=== PATIENT | female | born 1955 | race Caucasian/White ===

== ENCOUNTER 2016-11-11 12:43 | Emergency (ER) | payer MEDICAID, MEDICARE ==
[~2016-11-11] VITALS: Ht 137.2 cm; Wt 68.9 kg
[~2016-11-11 12:43] MED LIST: ACET325T51 PO; ALBU18HF2 ORAL INH; ALBU2.5V7 AEROSOL; CALC-1000 PO CHEW; CARB15DR12 EACH EAR; CHOL100018 PO; CLOT15CR5 TOP; DESO15CR30 TOP; DIPH25CA6 PO; FLUT16SP EA NOSTRIL; GABA-338 PO; GLUC500C2 PO; GUAI5SYR PO; HYDR30CR53 TOP; IBUP-1724 PO; KETO120S7 TOP; LACT1CAP14 PO; LEVO112T7 PO; LOPE2CAP PO; LORA0.5T2 PO; LORA10TA PO; MICO56OI2 TOP; MONT10TA15 PO; MULT-11 PO; MUPI22OI2 TOP; NYST15CR TOP; NYST60PO11 TOP; POLY17PO6 PO; PSEU30TA31 PO; RISP0.5T20 PO; TEMA15CA PO; TRIA15CR4 TOP; VIT236LO TOP; [UNRECOGNIZED DRUG - CODE] PO; [UNRECOGNIZED DRUG - CODE] TOP
[2016-11-11 12:48] VITALS: BP 137/75; TEMP 98.6; Ht 137.2 cm; Wt 68.9 kg
--- OUTSIDE RECORDS SUMMARY | 2016-11-11 12:49 | XMS REPORT | Continuity of Care Document ---
Author Author [facility] Organization [facility] Address Unknown Phone Unavailable Care Team Providers Care Diesel Technician Mechanic Name Role Phone NORTH ZHU MD Primary Care Physician [phone] Insurance Providers Guarantor Xin Velez Address [address] [place] [address] EVA Email DENIED/NO TO PT PORTAL Payer [facility] Plan Policy Number [id number] Subscriber's Name Xin Velez Relationship 18 Self Effective Date 16 Expiration Date 15 Payer Medicare Policy Number [id number] Subscriber's Name Xin Velez Relationship 18 Self Effective Date 74 Advance Directives Directive Response Recorded Date/Time Advanced Directives Type None 08/15/16 10:20pm Chief Complaint and Reason for Visit Chief Complaint Fever Reason for Visit [id number] Volume depletion Problems Active Problems Medical Problem Onset Date Status Acute urinary retention Unknown Resolved Diarrhea Unknown Resolved Down's syndrome Unknown Chronic Dysphagia Unknown Chronic Elevated lipase Unknown Resolved Epistaxis Unknown Acute Epistaxis Unknown Acute Fall Unknown Acute Fall Unknown Acute Hyperosmolality and hypernatremia Unknown Acute Hypotension Unknown Chronic Hypothyroidism Unknown Chronic Hypoxia Unknown Acute Leukocytosis Unknown Resolved MR (mental retardation) Unknown Chronic Minor head injury without loss of consciousness Unknown Acute Obesity (BMI 30-39.9) Unknown Chronic Pneumonia Unknown Acute Pneumonia Unknown Acute Rhinovirus Unknown Acute Scalp contusion Unknown Acute Scalp contusion Unknown Acute Sepsis Unknown Resolved Septic shock Unknown Resolved Surgical Problem Onset Date Status History of cataract extraction Unknown Resolved Past Problems Medical Problem Onset Date Constipation Unknown UTI (urinary tract infection) Unknown Urinary tract infection Unknown Volume depletion Unknown Medications Current Home Medications Medication Dose Units Route Directions Days Qty Instructions Start Date Acetaminophen 325 Mg Tablet 650 Mg Oral Every 4 Hours as needed for Fever Do not exceed 3,200 mg of acetaminophen in a 24 hours period. 03/25/16 Albuterol Sulfate 2.5 Mg/3 Ml Vial.neb 2.5 Mg Aerosol Tx. Every 2 Hours as needed for Wheezing 03/25/16 Albuterol Sulfate (Ventolin Hfa 90 Mcg/Actuation) 18 Gm Hfa.aer.ad 2 Puff Oral Inhalation Four Times Daily 03/25/16 Calcium Carbonate/Mag Hydrox (Antacid Chewable Tablet) 1 Each Tab.chew 2 Tab Po Chew Every 4 Hours as needed for Heartburn 03/25/16 Carbamide Peroxide (Ear Drops) 15 Ml Drops 5 Drop Each Ear Twice A Day as needed for Prn Orders 03/25/16 Chlorhexidine Gluconate (Betasept) 3,780 Ml Liquid 1 Applic Topically Daily 03/25/16 Cholecalciferol (Vitamin D3) 1,000 Unit Tablet 1,500 Unit Oral Daily 03/25/16 Clotrimazole/Betamethasone Dip (Clotrimazole-Betamethasone Crm) 15 Gm Cream..g. 1 Applic Topically Daily apply to feet 03/25/16 Desonide 15 Gm Cream..g. 1 Applic Topically As Needed 03/25/16 Diphenhydramine Hcl 25 Mg Capsule 25 Mg Oral Every 4 Hours as needed for Allery Symptoms 03/25/16 Fluticasone Propionate (Fluticasone Prop 50 Mcg/Actuation Nasal [place]) 120 [place]/16 G [place] 2 [place] Each Nostril Daily 01/11/15 Gabapentin 300 Mg Capsule 300 Mg Oral Bedtime 03/25/16 Glucosamine Sulfate 500 Mg Capsule 1,500 Mg Oral Twice A Day 05/31 Glucosamine Sulfate 500 Mg Capsule 500 Mg Oral Give With Supper 03/25/16 Guaifenesin/Codeine Phosphate (Guaifenesin Ac Cough Syrup) 473 Ml Liquid 5-10 Ml Oral Every 6 Hours as needed for Cough 03/25/16 Guaifenesin/D-Methorphan Hb (Guaifenesin Dm Syrup) 5 Ml Syrup 10 Ml Oral Every 4 Hours 03/25/16 Hydrocortisone 30 Gm Cream..g. 1 Applic Topically Twice A Day as needed for Prn Orders 03/25/16 Ibuprofen 200 Mg Tablet 400 Mg Oral Every 4 Hours as needed for Pain 03/25/16 Ketoconazole (Nizoral) 120 Ml Shampoo 1 Applic Topically Daily Lactobacillus Acidophilus (Acidophilus) 1 Each Capsule 1 Cap Oral Daily 07/06/15 Levothyroxine Sodium 112 Mcg Tablet 112 Mcg Oral Before Breakfast Once daily before breakfast. 08/16/16 Loperamide Hcl (Loperamide) 2 Mg Capsule 2 Mg Oral Four Times Daily as needed for Diarrhea 03/25/16 Loratadine (Alavert) 10 Mg Tablet 10 Mg Oral Daily 11/24/10 Lorazepam 0.5 Mg Tablet 0.5-1 Mg Oral Daily as needed for Anxiety give 30min-1hr prior to procedure 03/25/16 Miconazole Nitrate (Aloe Felt) 56 Gm Oint...g. 1 Applic Topically As Needed 03/25/16 Montelukast Sodium (Singulair) 10 Mg Tablet 10 Mg Oral Daily 07/06 Multivitamin (Tab-A-Tavo) 1 Each Tablet 1 Tab Oral Daily 01/11/15 Mupirocin 22 Gm Oint...g. 1 Applic Topically Twice A Day apply to tata area 03/25/16 Nystatin 15 Applic/15 G Cr 1 Applic Topically Three Times A Day 03/25/16 Nystatin 60 Gm Powder 1 Applic Topically Twice A Day 03/25/16 Polyethylene Glycol 3350 (Miralax) 17 Gm Powd.pack 1 Packet Oral Daily 30 Packet 03/25/16 Pseudoephedrine Hcl (Sudogest) 30 Mg Tablet 30 Mg Oral Twice A Day as needed for Congestion 03/25/16 Risperidone 0.5 Mg Tablet 0.5 Mg Oral Bedtime 07/06/15 Temazepam 15 Mg Capsule 15 Mg Oral Bedtime 07/06/15 Triamcinolone (Triamcinolone Acetonide) 15 Applic/15 G Cr 1 Applic Topically Twice A Day apply to dry areas on ear and scalp 03/25/16 Vit E Acetate/Gly/Dimeth/Water (Cetaphil Moisturizing Lot) 50 Applic/236 Ml Lotion 1 Applic Topically Three Times A Day 03/25/16 Past Home Medications Medication Directions Ordered Status Ciprofloxacin Hcl (Cipro) 250 Mg Tablet, 250 Mg Oral Every 12 Hours 03/25/16 Discontinued Ciprofloxacin Hcl (Cipro) 500 Mg Tablet, 500 Mg Oral Every 12 Hours 08/16/16 Discontinued Ciprofloxacin Hcl (Cipro) 500 Mg Tablet, 500 Mg Oral Twice A Day 10/27/08 Discontinued Levothyroxine Sodium 50 Mcg Tablet, 50 Mcg Oral Before Breakfast 07/06/15 Discontinued Levothyroxine Sodium 75 Mcg Tablet, 75 Mcg Oral Before Breakfast 01/11/15 Discontinued Nystop Powder , 30 Gm Topical Three Times A Day 10/25/08 Discontinued Parab/Cet Alc/Stryl Alc/Pg/Sls (Cetaphil Cleansing Lotion) 120 Ml Cleanser, 120 Ml Topical Three Times A Day 10/27/08 Discontinued Saline [place] , As Needed 10/25/08 Discontinued Trazodone Hcl 50 Mg Tablet, 1 Tab Oral Daily 03/07/10 Discontinued Triamcinolone Acetonide (Kenalog 0.1%) 80 Gm Cr, 80 Gm Topical Twice A Day Discontinued Social History Social History Problem Response Recorded Date/Time Onset Date Status Hx Substance Use No 08/16/2016 12:20am Not Applicable Not Applicable Hx Alcohol Use No 08/16/2016 12:20am Not Applicable Not Applicable Has the pt used tobacco in the last 12 months No 07/09/2015 12:57pm Not Applicable Not Applicable Tobacco Usage none 07/06/2015 12:47pm Not Applicable Not Applicable Query Response Start Date Stop Date Smoking Status Unknown if ever smoked Hospital Discharge Instructions No hospital discharge instructions. Plan of Care Discharge Date 08/16/16 1:40am Disposition 01 DISCHARGED HOME, SELF-CARE Condition at Discharge Stable Instructions/Education Provided DI for Urinary Tract Infection (UTI) Prescriptions See Medication Section Referrals NORTH ZHU MD Address: [address] [place] [id number] Additional Instructions/Education Give cipro 500mg twice daily for 7 days. Repeat urine after finishing antibiotic. Treat fever with ibuprofen or Tylenol. Keep well hydrated, offer fluids often. Follow treatment plan. Follow with PCP if not improving early next week. Care Plan and Goals Physician Care Plan Problem: UTI Goal: Follow up with primary care provider Instructions: Take medications and follow care plan as discussed/written Functional Status No functional status results. Allergies, Adverse Reactions, Alerts Allergen Type Severity Reaction Status Last Updated Amoxicillin Allergy Unknown Active 07/06/15 Tomato Allergy Unknown Active 07/06/15 metal jewlery Allergy Mild ALLERGIC DERMATITIS Active 01/11/15 Immunizations Query Response on File Recorded Date/Time Hx Influenza Vaccination Y 05/201507/09/15 12:57pm Hx Pneumococcal Vaccination No 07/09/15 12:57pm Hx Tetanus, Diptheria, Pertussis No 01/11/15 7:45am Hx Influenza Vaccination Y 05/201507/09/15 12:57pm Hx Tetanus Diptheria Y 06/24/04 01/11/15 7:45am Hx Tetanus, Diptheria, Pertussis No 01/11/15 7:45am Influenza Vaccine Hx MAY 2015 08/16/16 12:20am Vital Signs Acute Vital Signs Vital Response Date/Time Temperature (Fahrenheit) 102.3 deg F (96.8 - 99.1) 08/15/2016 10:20pm Temperature (Calculated Celsius) 39.32840 degrees C (36.0 - 37.3) 08/15/2016 10:20pm Pulse Rate (adult) 70 bpm (60 - 100) 08/16/2016 1:40am Respiratory Rate 16 breaths/min (10 - 20) 08/16/2016 1:40am O2 Sat by Pulse Oximetry 90 % (90 - 100) 08/16/2016 1:40am Blood Pressure 86/48 mm Hg 08/16/2016 1:40am Height (Feet) 4 feet 08/15/2016 10:20pm Height (Inches) 6.00 inches 08/15/2016 10:20pm Weight (Kilograms) 69.400 kg 08/15/2016 10:20pm Body Mass Index (BMI) 36.0 08/15/2016 10:20pm Results Laboratory Results Test Name Result Units Flags Reference Collection Date/Time Result Date/ Time Comments White Blood Count 8.1 T/MM3 4.5-11.0 08/15/2016 11:00pm 08/15/2016 11: 06pm Red Blood Count 4.00 M/MM3 4.00-5.20 08/15/2016 11:00pm 08/15/2016 11: 06pm Hemoglobin 12.8 GM/DL 12-16 08/15/2016 11:00pm 08/15/2016 11:06pm Hematocrit 38.6 % 36-46 08/15/2016 11:00pm 08/15/2016 11:06pm Mean Corpuscular Volume 96.5 UM3 80-100 08/15/2016 11:00pm 08/15/2016 11:06pm Mean Corpuscular Hemoglobin 32.0 UUG 26-34 08/15/2016 11:00pm 2015 11:06pm Mean Corpuscular Hemoglobin Concent 33.2 GM/DL 31-37 08/15/2016 11:00pm 08/15/2016 11:06pm RDW Standard Deviation 47.2 FL 36.9-50.2 08/15/2016 11:00pm 08/15/2016 11:06pm Platelet Count 189 T/MM3 130-400 08/15/2016 11:00pm 08/15/2016 11:06pm Mean Platelet Volume 10.5 UM3 9.4-12.4 08/15/2016 11:00pm 08/15/2016 11 :06pm Neutrophils (%) (Auto) 62.7 % 33-66 08/15/2016 11:00pm 08/15/2016 11: 06pm Lymphocytes (%) (Auto) 20.4 % L 23-45 08/15/2016 11:00pm 08/15/2016 11: 06pm Monocytes (%) (Auto) 15.7 % H 0-9.0 08/15/2016 11:00pm 08/15/2016 11: 06pm Eosinophils (%) (Auto) 0.2 % 0-4 08/15/2016 11:00pm 08/15/2016 11:06pm Basophils (%) (Auto) 0.5 % 0-2 08/15/2016 11:00pm 08/15/2016 11:06pm Immature Granulocyte % (Auto) 0.5 % 0.0-0.5 08/15/2016 11:00pm 2015 11:06pm Absolute Neutrophils (auto) 5.1 T/MM3 1.8-7.7 08/15/2016 11:00pm 2015 11:06pm Absolute Lymphocytes (auto) 1.7 T/MM3 1-4.8 08/15/2016 11:00pm 2015 11:06pm Absolute Monocytes (auto) 1.3 T/MM3 H 0-0.8 08/15/2016 11:00pm 2015 11:06pm Absolute Eosinophils (auto) 0.0 T/MM3 0-0.5 08/15/2016 11:00pm 2015 11:06pm Absolute Basophils (auto) 0.0 T/MM3 0-0.2 08/15/2016 11:00pm 2015 11:06pm Absolute Immature Granulocyte (auto 0.04 T/MM3 H 0.00-0.03 08/15/2016 11: 00pm 08/15/2016 11:06pm Icterus Index < 2 0-7 08/15/2016 11:00pm 08/15/2016 11:15pm Chemistry Specimen Hemolysis < 15 0-25 08/15/2016 11:00pm 08/15/2016 11:15pm 0-25: Specimen Exhibited No Hemolysis. Turbidity < 20 0-20 08/15/2016 11:00pm 08/15/2016 11:15pm Sodium Level 143 MEQ/L 134-144 08/15/2016 11:00pm 08/15/2016 11:15pm Potassium Level 4.2 MEQ/L 3.6-5 08/15/2016 11:00pm 08/15/2016 11:15pm Chloride Level 108 MEQ/L H 98-107 08/15/2016 11:00pm 08/15/2016 11:15pm Carbon Dioxide Level 24 MEQ/L 22-30 08/15/2016 11:00pm 08/15/2016 11: 15pm Anion Gap 11 MEQ/L 5-15 08/15/2016 11:00pm 08/15/2016 11:15pm Blood Urea Nitrogen 32.0 MG/DL H 7-17 08/15/2016 11:00pm 08/15/2016 11: 15pm Creatinine 1.3 MG/DL H 0.7-1.2 08/15/2016 11:00pm 08/15/2016 11:15pm BUN/Creatinine Ratio 25 RATIO 6-26 08/15/2016 11:00pm 08/15/2016 11: 15pm Glomerular Filtration Rate Calc 42 08/15/2016 11:00pm 08/15/2016 11 :15pm Glucose Level 116 MG/DL H 65-110 08/15/2016 11:00pm 08/15/2016 11:15pm Calculated Osmolality 283 MOSM/KG H 261-280 08/15/2016 11:00pm 2015 11:15pm Calcium Level 8.2 MG/DL L 8.4-10.2 08/15/2016 11:00pm 08/15/2016 11: 15pm Total Bilirubin 0.50 MG/DL 0.20-1.30 08/15/2016 11:00pm 08/15/2016 11: 15pm Alkaline Phosphatase 103 U/L 38-126 08/15/2016 11:00pm 08/15/2016 11: 15pm Total Protein 6.0 G/DL L 6.3-8.2 08/15/2016 11:00pm 08/15/2016 11:15pm Albumin 3.1 G/DL L 3.5-5.0 08/15/2016 11:00pm 08/15/2016 11:15pm Globulin 2.9 G/DL 2.4-3.6 08/15/2016 11:00pm 08/15/2016 11:15pm Albumin/Globulin Ratio 1.1 RATIO 1.1-2.2 08/15/2016 11:00pm 08/15/2016 11:15pm Aspartate Amino Transf (AST/SGOT) 33 U/L 14-36 08/15/2016 11:00pm 08/15 11:15pm Alanine Aminotransferase (ALT/SGPT) 39 U/L 9-52 08/15/2016 11:00pm 11:15pm Plasma Lactate 1.1 MMOL/L 0.6-2.2 08/15/2016 11:00pm 08/15/2016 11: 14pm Procalcitonin 0.88 NG/ML 08/15/2016 11:00pm 08/15/2016 11:55pm PCT < /=0.5 ng/mL - sepsis not likely; PCT >0.5 and </=2 ng/mL - sepsis possible; PCT >2 ng/mL - sepsis likely; PCT >/=10 ng/mL - systemic inflammatory response - sepsis or septic shock highly indicated. Influenza Type A Antigen NEGATIVE NEGATIVE 08/15/2016 11:48pm 2016 12:14am Negative for Flu A protein antigen. Assay sensitivity is 90%. Influenza Type B Antigen NEGATIVE NEGATIVE 08/15/2016 11:48pm 2016 12:14am Negative for Flu B protein antigen. Assay sensitivity is 90%. Urine Collection Type VOIDED-NOT CC-MIDSTR 08/15/2016 11:48pm 08/16 12:00am Urine Color YELLOW YELLOW 08/15/2016 11:48pm 08/16/2016 12:00am Urine Turbidity CLOUDY CLEAR 08/15/2016 11:48pm 08/16/2016 12:00am Urine Specific [place] 1.010 L 1.015-1.025 08/15/2016 11:48pm 2016 12:00am Urine pH 6.0 5.0-8.0 08/15/2016 11:48pm 08/16/2016 12:00am Urine Leukocyte Esterase 2+ A NEGATIVE 08/15/2016 11:48pm 08/16/2016 12:00am Urine Nitrite POSITIVE A NEGATIVE 08/15/2016 11:48pm 08/16/2016 12: 00am Urine Protein TRACE A NEGATIVE 08/15/2016 11:48pm 08/16/2016 12:00am Urine Glucose (UA) NEGATIVE NEGATIVE 08/15/2016 11:48pm 08/16/2016 12 :00am Urine Ketones NEGATIVE NEGATIVE 08/15/2016 11:48pm 08/16/2016 12: 00am Urine Urobilinogen 0.2 EU/DL NORMAL 08/15/2016 11:48pm 08/16/2016 12: 00am Urine Bilirubin NEGATIVE NEGATIVE 08/15/2016 11:48pm 08/16/2016 12: 00am Urine Blood 1+ A NEGATIVE 08/15/2016 11:48pm 08/16/2016 12:00am Urine WBC TNTC /HPF H 0-5 08/15/2016 11:48pm 08/16/2016 12:01am Urine RBC 10-20 /HPF H 0-3 08/15/2016 11:48pm 08/16/2016 12:01am Urine Bacteria 1+ H NEGATIVE 08/15/2016 11:48pm 08/16/2016 12:01am Urine Culture Indicated CULT REFLEXED &SETUP 08/15/2016 11:48pm 08/2016 12:01am Microbiology Results Procedure Source Organism/Result Collection Date/Time Result Date/Time Result Status Blood Culture Peripheral/Iv Start CULTURE INITIATED - RESULTS PENDING 08/15 11:00pm 08/15/2016 11:04pm Preliminary Urine Culture Urine, Voided-Not Cc-Midstream CULTURE INITIATED - RESULTS PENDING 08/16/2016 12:01am 08/16/2016 12:02am Preliminary Procedures No known history of procedures. Encounters Encounter Location Arrival/Admit Date Discharge/Depart Date Attending Provider Departed Emergency Room [facility] 08/15/16 10:19pm 08/16/16 1: 40am WARD BLAKE MD Recent Diagnosis
--- OUTSIDE RECORDS SUMMARY | 2016-11-11 12:49 | XMS REPORT | Continuity of Care Document ---
Author Author [facility] Organization [facility] Address Unknown Phone Unavailable Care Team Providers Care Slide Fastener Repairer Name Role Phone DAGO JALLOH DO Primary Care Physician [phone] Insurance Providers Payer Name Policy Number Subscriber Name Relationship Medicare [id number] Xin Julien 18 Self [facility] Plan [id number] Xin Julien 18 Self Advance Directives Directive Response Recorded Date/Time Advanced Directives Type None 07/05/14 10:32am Problems Medical Problems Problem Onset Date Status Scalp contusion Unknown Active Fall Unknown Active Medications Medication Dose Route Sig Days/Qty Instructions Order Date Discontinued Date Status Lactobacillus Acidophilus/Pect 1 Cap PO 03/07/10 Active Desonide 60 Gm TP 03/07/10 Active Fluticasone Propionate 03/07/10 Active Montelukast Sodium 10 Mg PO 03/07/10 Active Levothyroxine Sodium 88 Mcg PO 03/07/10 Active Multivitamins,Therapeutic 1 Tab PO 03/07/10 Active Triamcinolone Acetonide 80 Gm TP TWICE A DAY 10/27/08 03/07/10 Discontinued Calcium Carbonate 1 Cap PO THREE TIMES A DAY 03/07/10 Active Parab/Cet Alc/Stryl Alc/Pg/Sls 120 Ml TP THREE TIMES A DAY 10/27/08 03/07/10 Discontinued Mupirocin 22 Gm TP THREE TIMES A DAY 03/07/10 Active [Nystop Powder] 30 Gm TP THREE TIMES A DAY 10/25/08 10/27/08 Discontinued Trazodone Hcl 50 Mg PO DAILY 03/07/10 Active [Saline [place]] NEEDED 10/25/08 10/27/08 Discontinued Ciprofloxacin Hcl 500 Mg PO TWICE A DAY 10/27/08 03/07/10 Discontinued Nystatin TP THREE TIMES A DAY 03/07/10 Active Ketoconazole TP DAILY 03/07/10 Active Glucosamine Sulfate 11/24/10 Active Loratadine 11/24/10 Active Vit E Acetate/Gly/Dimeth/Water 50 Applic TOP THREE TIMES A DAY Active Glucosam Hcl/[place] A/C/Mn 1 Cap PO TWICE A DAY 04/23/12 Active Chlorhexidine Gluconate 118 Ml TP DAILY 04/23/12 Active Albuterol Sulfate 0.63 Mg IH NEEDED 04/23/12 Active Lorazepam 0.5 Mg PO NEEDED 04/23/12 Active Social History Social History Problem Response Recorded Date/Time Smoking Status Never smoker 07/05/2014 10:53am Hx Substance Use No 07/05/2014 10:53am Hx Alcohol Use No 07/05/2014 10:53am Query Response Start Date Stop Date Smoking Status Never smoker Hospital Discharge Instructions No hospital discharge instructions. Plan of Care No plan of care. Functional Status Query Response Date Recorded Physical Hygiene Self July 05, 2014 10:53am Disabilities None July 05, 2014 10:53am Devices Used Wheelchair July 05, 2014 10:53am Dressing Self July 05, 2014 10:53am Ambulation Self July 05, 2014 10:53am Diet Self July 05, 2014 10:53am Cognitive/Functional Comments SEVERE MR, DOWN'S SYNDROME July 05, 2014 10:53am Mental Status Alert Oriented July 05, 2014 12:24pm Disabilities None July 05, 2014 10:53am Devices Used Wheelchair July 05, 2014 10:53am Physical Hygiene Self July 05, 2014 10:53am Dressing Self July 05, 2014 10:53am Ambulation Self July 05, 2014 10:53am Diet Self July 05, 2014 10:53am Allergies, Adverse Reactions, Alerts Allergen Type Severity Reaction Status Last Updated Amoxicillin Allergy Unknown Active 07/05/14 Tomato Allergy Unknown Active 07/05/14 METAL JEWERLY Allergy Unknown Active 10/25/08 Immunizations Name Given Type Hx Tetanus, Diptheria, Pertussis Y 06/24/04 Historical Hx Tetanus, Diptheria, Pertussis Y 06/24/04 Historical Vital Signs Acute Vital Signs Vital Response Date/Time Temperature (Fahrenheit) 96.9 deg F (96.8 - 99.1) Temperature (Calculated Celsius) 36.18070 degrees C (36.0 - 37.3) Pulse Rate (adult) 62 bpm (60 - 100) Respiratory Rate 20 breaths/min (10 - 20) O2 Sat by Pulse Oximetry 94 % (90 - 100) Blood Pressure 134/80 mm Hg Height 4 ft 6 in Weight 156 lb Body Mass Index 37.0 kg/m^2 Results Test Source Date Result Interp. Ref. Range Comments Alanine Aminotransferase (ALT/SGPT) October 25, 2008 7:58pm 28 U/L N 9-52 Albumin October 25, 2008 7:58pm 3.7 G/DL N 3.5-5.0 Albumin/Globulin Ratio October 25, 2008 7:58pm 1.1 RATIO N 1.1-2.2 Alkaline Phosphatase October 25, 2008 7:58pm 106 U/L N 38-126 Anion Gap October 31, 2008 4:50am 5.9 MEQ/L N 5-15 Aspartate Amino Transf (AST/SGOT) October 25, 2008 7:58pm 38 U/L H 14-36 B-Type Natriuretic Peptide October 25, 2008 7:58pm 53 PG/ML N 15-100 BUN/Creatinine Ratio October 31, 2008 4:50am 16 RATIO N 6-26 Basophils # (Auto) April 23, 2012 11:50am 0.0 T/MM3 N 0-0.2 Basophils (%) (Auto) April 23, 2012 11:50am 0.4 % N 0-2 Blood Urea Nitrogen October 31, 2008 4:50am 21 MG/DL DH 7-17 Calcium Level October 31, 2008 4:50am 8.5 MG/DL N 8.4-10.2 Calculated Osmolality October 31, 2008 4:50am 275 MOSM/KG N 261-280 Carbon Dioxide Level October 31, 2008 4:50am 26 MEQ/L N 22-30 Chloride Level October 31, 2008 4:50am 110 MEQ/L H 98-107 Creatinine October 31, 2008 4:50am 1.3 MG/DL H 0.7-1.2 Eosinophils # (Auto) April 23, 2012 11:50am 0.1 T/MM3 N 0-0.5 Eosinophils (%) (Auto) April 23, 2012 11:50am 0.5 % N 0-4 Globulin October 25, 2008 7:58pm 3.3 G/DL N 2.4-3.6 Glucose Level October 31, 2008 4:50am 89 MG/DL N 65-110 Hematocrit April 23, 2012 11:50am 39.7 % N 36-46 Hemoglobin April 23, 2012 11:50am 13.3 GM/DL N 12-16 Influenza Virus Types A,B Antigen October 25, 2008 7:58pm Negative - Lymphocytes # (Auto) April 23, 2012 11:50am 1.7 T/MM3 N 1-4.8 Lymphocytes (%) (Auto) April 23, 2012 11:50am 18.2 % L 23-45 Mean Corpuscular Hemoglobin April 23, 2012 11:50am 32.0 UUG N 26-34 Mean Corpuscular Hemoglobin Concent April 23, 2012 11:50am 33.5 GM/DL N 31-37 Mean Corpuscular Volume April 23, 2012 11:50am 95.4 UM3 N 80-100 Mean Platelet Volume April 23, 2012 11:50am 10.6 UM3 N 9.4-12.4 Monocytes # (Auto) April 23, 2012 11:50am 1.3 T/MM3 H 0-0.8 Monocytes (%) (Auto) April 23, 2012 11:50am 13.6 % H 0-9.0 Neutrophils # (Auto) April 23, 2012 11:50am 6.4 T/MM3 N 1.8-7.7 Neutrophils (%) (Auto) April 23, 2012 11:50am 67.0 % H 33-66 Platelet Count April 23, 2012 11:50am 227 T/MM3 N 130-400 Potassium Level October 31, 2008 4:50am 4.8 MEQ/L N 3.6-5 RDW Standard Deviation April 23, 2012 11:50am 47.1 FL N 36.9-50.2 Red Blood Count April 23, 2012 11:50am 4.16 M/MM3 N 4.00-5.20 Sodium Level October 31, 2008 4:50am 142 MEQ/L N 134-144 Total Bilirubin October 25, 2008 7:58pm 0.15 MG/DL L 0.20-1.30 Total Protein October 25, 2008 7:58pm 7.0 G/DL N 6.3-8.2 White Blood Count April 23, 2012 11:50am 9.6 T/MM3 N 4.5-11.0 Glomerular Filtration Rate Calc October 31, 2008 4:50am 43 - Immature Granulocyte # (Auto) April 23, 2012 11:50am 0.03 T/MM3 N 0.00-0.03 Immature Granulocyte % (Auto) April 23, 2012 11:50am 0.3 % N 0.0- 0.5 Blood Culture Blood April 23, 2012 11:50am NO GROWTH AFTER 5 DAYS Name: XIN JULIEN Unit #: [id number] : [id number] Sex: F Loc / Svc: ED DOS: 07/05/14 Signed Report #: [id number] DIAGNOSTIC IMAGING REPORT TYPE OF EXAM: CT HEAD W/O CONTRAST Dictated By: RICH MCLAIN MD INDICATION: ITS.REASON: trauma CT HEAD W/O CONTRAST: Comparison: None Technique: Axial CT images through the head were performed without contrast. FINDINGS: Exam is limited due to motion artifact. The ventricles are grossly normal. No acute intracranial hemorrhage or midline displacement. No displaced calvarial fracture. Scattered low-attenuation white matter lesions consistent with age related chronic microvascular ischemia. IMPRESSION: No definite CT evidence of acute traumatic intracranial injury. . Procedures No known history of procedures. Encounters Encounter Location Date/Time Departed Emergency Room [facility] 07/05/14 10:27am Recent Diagnosis
--- OUTSIDE RECORDS SUMMARY | 2016-11-11 12:49 | XMS REPORT | Continuity of Care Document ---
Author Author [facility] Organization [facility] Address Unknown Phone Unavailable Care Team Providers Care Leaf Sucker Operator Name Role Phone DAGO JALLOH DO Primary Care Physician [phone] Insurance Providers Payer Name Policy Number Subscriber Name Relationship Medicare [id number] Xin Julien 18 Self [facility] Plan [id number] Xin Julien 18 Self Advance Directives Directive Response Recorded Date/Time Advanced Directives Type DPOA for Healthcare 10/17/14 8:55am Problems Medical Problems Problem Onset Date Status Scalp contusion Unknown Active Fall Unknown Active Scalp contusion Unknown Active Epistaxis Unknown Active Minor head injury without loss of consciousness Unknown Active Fall Unknown Active Medications Medication [...] 50 Mg PO DAILY 03/07/10 Active [Saline [place]] NEEDED 10/25/08 10/27/08 Discontinued Ciprofloxacin Hcl 500 [...] History Social History Problem Response Recorded Date/Time Hx Substance Use No 10/17/2014 9:41am Hx Alcohol Use No 10/17/2014 9:41am Tobacco Usage none 07/05/2014 4:31pm Query Response Start Date Stop Date Smoking Status Never smoker Hospital Discharge Instructions No hospital discharge instructions. Plan of Care No plan of care. Functional Status Query Response Date Recorded Physical Hygiene Self October 17, 2014 9:41am Disabilities None October 17, 2014 9:41am Devices Used None October 17, 2014 9:41am Dressing Self October 17, 2014 9:41am Ambulation Self October 17, 2014 9:41am Diet Self October 17, 2014 9:41am Mental Status Alert Oriented October 17, 2014 9:48am Disabilities None October 17, 2014 9:41am Devices Used None October 17, 2014 9:41am Physical Hygiene Self October 17, 2014 9:41am Dressing Self October 17, 2014 9:41am Ambulation Self October 17, 2014 9:41am Diet Self October 17, 2014 9:41am Allergies, Adverse Reactions, Alerts Allergen Type Severity Reaction Status Last Updated Amoxicillin Allergy Unknown Active 10/17/14 Tomato Allergy Unknown Active 10/17/14 METAL JEWERLY Allergy Unknown Active 10/25/08 Immunizations Name Given Type Hx Tetanus, Diptheria, Pertussis No Historical Hx Tetanus, Diptheria, Pertussis No Historical Vital Signs Acute Vital Signs Vital Response Date/Time Temperature (Fahrenheit) 98.8 deg F (96.8 - 99.1) Temperature (Calculated Celsius) 37.62795 degrees C (36.0 - 37.3) Pulse Rate (adult) 72 bpm (60 - 100) Respiratory Rate 16 breaths/min (10 - 20) O2 Sat by Pulse Oximetry 95 % (90 - 100) Blood Pressure 93/59 mm Hg Height 4 ft 8 in Weight 163 lb Body Mass Index 36.0 kg/m^2 Results Test Source Date Result Interp. [...] 2012 11:50am NO GROWTH AFTER 5 DAYS Procedures No known history of procedures. Encounters Encounter Location Date/Time Departed Emergency Room [facility] 10/17/14 8:50am Recent Diagnosis
--- OUTSIDE RECORDS SUMMARY | 2016-11-11 12:49 | XMS REPORT | Continuity of Care Document ---
Author Author [facility] Organization [facility] Address Unknown Phone Unavailable Allergies Medications Problems Procedures Results Encounters ACCT No. Visit Date/Time Discharge Status Pt. Type Provider Facility Loc./Unit Complaint [id number] 07/24/2013 10:34:00 07/24/2013 23 :59:59 CLS Outpatient
--- OUTSIDE RECORDS SUMMARY | 2016-11-11 12:56 | XMS REPORT | Continuity of Care Document ---
Author Author [facility] Organization [facility] Address Unknown Phone Unavailable Allergies Medications Problems Procedures Results Encounters ACCT No. Visit Date/Time Discharge Status Pt. Type Provider Facility Loc./Unit Complaint [id number] 07/24/2013 10:34:00 07/24/2013 23 :59:59 CLS Outpatient
--- OUTSIDE RECORDS SUMMARY | 2016-11-11 12:56 | XMS REPORT | Continuity of Care Document ---
Author Author [facility] Organization [facility] Address Unknown Phone Unavailable Care Team Providers Care Mechanic Field Service Name Role Phone DAGO JALLOH DO Primary Care Physician [phone] Insurance Providers Payer Name Policy Number Subscriber Name Relationship Medicare [id number] Xin Julien 17 Self [facility] Plan [id number] Xin Julien 18 Self Advance Directives Directive [...] 50 Mg PO DAILY 03/07/10 Active [Saline [employer]] NEEDED 10/25/08 10/27/08 Discontinued Ciprofloxacin Hcl 500 [...] F (96.8 - 99.1) Temperature (Calculated Celsius) 36.96016 degrees C (36.0 - 37.3) Pulse Rate [...] 5 DAYS Name: XIN JULIEN Unit #: [id number] : 1955 Sex: F Loc / Svc: ED DOS: 07/05/14 Signed Report #: [id number] DIAGNOSTIC IMAGING REPORT TYPE OF EXAM: CT [...] Encounters Encounter Location Date/Time Departed Emergency Room [facility] 07/05/14 10:27am Recent Diagnosis
--- OUTSIDE RECORDS SUMMARY | 2016-11-11 12:56 | XMS REPORT | Continuity of Care Document ---
Author Author [facility] Organization [facility] Address Unknown Phone Unavailable Care Team Providers Care Pharmaceutical Detailer Name Role Phone DAGO JALLOH DO Primary Care Physician [phone] Insurance Providers Payer Name Policy Number Subscriber Name Relationship Medicare [id number] Xin Julien 17 Self [facility] Plan [id number] Xin Julien 17 Self Advance Directives Directive [...] 50 Mg PO DAILY 03/07/10 Active [Saline [place]] NEEDED 10/25/08 10/27/08 Discontinued Ciprofloxacin Hcl 500 [...] F (96.8 - 99.1) Temperature (Calculated Celsius) 37.69600 degrees C (36.0 - 37.3) Pulse Rate [...] Encounters Encounter Location Date/Time Departed Emergency Room [facility] 10/17/14 8:50am Recent Diagnosis
--- NOTE | 2016-11-11 13:26 | DI ---
Indication: ITS.REASON: choked on fruit snack PROCEDURE: NECK SOFT TISSUE: Encounter: Initial Comparison: None Findings: There is no prevertebral or retropharyngeal soft tissue swelling identified. Motion artifact limits visualization of the trachea on the frontal view. Severe multilevel degenerative change in the thoracic spine with large anterior osteophytes. No radiopaque foreign body identified projecting over the airway. Impression: Findings as above. .
--- NOTE | 2016-11-11 13:32 | DI ---
INDICATION: ITS.REASON: choked on a fruit snack PROCEDURE: CHEST 2-VIEWS UPRIGHT (PA \T\ LAT) Encounter: Initial COMPARISON: August 15, 2016 and March 25, 2016 FINDINGS: Increased interstitial markings in both lungs, similar to the prior study. This has a basilar predominance. No pneumothorax or pleural effusion. Heart size and mediastinal contours are stable. Pulmonary vascularity is unchanged. Impression: Similar appearance of the chest with increased interstitial markings, most of which are probably chronic. No focal pneumonia or aspiration identified. .
--- NOTE | 2016-11-11 13:40 | NUR ---
PO FLUID CHALLENGE PATIENT GIVEN ICE WATER. DRANK THE WHOLE GLASS. TOLERATED WELL. NO VOMITING, SPITTING UP, OR CHOKING. DR. LEMUS INFORMED.
--- NOTE | 2016-11-11 13:57 | ERPDOC ---
Departure Disposition Decision Date: Nov 11, 2016 Disposition Decision Time: 13:55 Disposition: 01 DISCHARGED HOME, SELF-CARE Impression Impression Impression: Primary Impression: Choking episode Severity: Mild Condition: Improved Seen By: Physician only Referrals: TRI ZHU MD (PCP) 1 Day Patient Instructions: Choking in Children (ED) Problems/Meds/Labs Reviewed?: Yes Medications reviewed and manag: Yes Follow up care ordered?: Yes Mental Status: Alert, Oriented HPI - General Medical General Chief Complaint: Acute Medical Problem Stated Complaint: CHOKED ON FRUIT SNACK Time Seen by Provider: 12:51 Source: patient, snf records, other (Review Assistant) Exam Limitations: no limitations HPI - General Medical Initial Comments 61-year-old female presents the emergency department with a chief complaint of a choking episode on a frequent snack. Patient had 1 episode of nonbloody nonbilious emesis after the episode. Patient denies any pain or discomfort. Patient is asymptomatic upon arrival to the emergency department. The fruit snack came up with the emesis. Patient denies any other complaints or associated symptoms. She was at her care facility when the incident occurred. There are no exacerbating or remitting factors. Symptoms have resolved upon arrival to the emergency department. Occurred At: other Onset: other (Resovled) Allergies: Coded Allergies: amoxicillin (Verified Allergy, Unknown, 07/06/15) tomato (Verified Allergy, Unknown, 07/06/15) Uncoded Allergies: metal jewlery (Allergy, Mild, ALLERGIC DERMATITIS, 01/11/15) Past History Patient Surgical History Cataracts Past Medical History Metabolic: hypothyroidism ENMT: sinusitis Hx Echocardiogram: No Female: UTI Neurological: chronic disability, other Surgical History General: other Family History Family History: Negative Family PMH: FOUND: other Vaccines Hx Influenza Vaccination: Yes (05/2015) Hx Pneumococcal Vaccination: No Hx Tetanus Diptheria: Yes (06/24/04) Hx Tetanus, Diptheria, Pertuss: No Social History Smoking Status: Never smoker Substance Use Type: does not use Alcohol Intake: none Housing: other Review of Systems Constitutional Constitutional: DENIES: chills, fever Eyes General: DENIES: erythema, exudate Lids/Accessories: DENIES: erythema, swelling Vision: DENIES: acuity, blurring ENMT Ears: DENIES: drainage, pain Hearing: DENIES: hearing loss Balance: DENIES: ataxia, falling to one side Sinuses: DENIES: congestion, pain Nose: DENIES: nosebleeds, pain Mouth/Throat: DENIES: drooling, painful swallowing, sore throat Teeth: DENIES: pain Jaw: DENIES: pain Cardiovascular Cardiac: DENIES: chest pain, dyspnea on exertion Rhythm/Rate: DENIES: irregular beat, palpitations Vascular: DENIES: pedal edema, unilateral swelling Pulmonary Respiratory: DENIES: cough, dyspnea, pleuritic chest pain, sputum GI Upper Abdomen: DENIES: nausea, pain, vomiting Lower Abdomen: DENIES: diarrhea, pain General: DENIES: dysuria, pain Musculoskeletal General: DENIES: pain, tenderness Integumentary Skin: DENIES: itching, rash Neurological General: DENIES: headache, numbness, weakness Psychiatric Psychiatric: DENIES: emotional instability, suicidal ideation/attempt Endocrine Endocrine: DENIES: polydipsia, polyphagia Hematologic/Lymphatic Hematologic/Lymphatic: DENIES: frequent nosebleeds, lymphadenopathy Allergic/Immunological Allergic/Immunoligical: DENIES: allergic reactions, hives Physical Exam General General Nourishment: well nourished, well developed, appears stated age, no acute distress, adult General Body Habitus: well groomed Vitals and Pain First Documented Vital Signs Date Time Temp Pulse Resp B/P Pulse Ox O2 Delivery O2 Flow Rate FiO2 11/11/16 12:48 98.6 86 16 137/75 97 Room Air Weight: Kilograms: 68.900 Height (feet): 4 Height (inches): 6.00 Triage Pain Scale: RN VS reviewed by Provider: Yes Normal Exams: Head: Normocephalic w/o trauma Fundi: Disks flat and sharp, No hemorrhages, or AV nicking noted ENMT: No facial trauma, nasal exudates, pharyngeal erythema, or exudates are noted Dental: No fractured, loose, or missing teeth noted Neck: Full range of motion, without adenopathy, JVD, bruits or thyromegaly Chest/Resp: Clear all ucrran, with good airflow, and symmetry bilaterally CV: Regular rate and rhythm, without murmur or gallop, Pulses 2+ all extremities, capillary refill, <2 seconds all ext., no pedal edema noted Abdomen: Bowel sounds positive, soft, non-tender, non-distended, no hepatosplenomegaly, masses or bruits noted Lymphatic: No lymphadenopathy, or lymphedema noted Musculoskeletal: No tenderness, or deformity noted, good range of motion, all extremities Integumentary: No rashes, hives, or bruising noted, hair and nails, without abnormality Neurologic: Patient is alert, and oriented, cranial nerves, motor/sensory/ cerebellar, exams w/o gross deficits, to observation Psychiatric: Patient exhibits, appropriate attention, emotion and affect ENMT (brief) Comments Oral - no drooling. Handling secretions without difficulty. Voice is normal. Speaking in full sentences. No foreign body. Uvula is midline. No tonsillar to exudate. No sign of abscess. No pharyngeal erythema. Differential Diagnoses Considering: Other (Choking episode/esophageal foreign body/URI/Pnuemonia) Progress Results/Orders Orders Procedure Category Date Status Time Chest, Pa & Lateral RAD 11/11/16 Resulted 12:51 Neck Soft Tissue RAD 11/11/16 Resulted 12:51 Progress Progress Imaging is discussed in detail with the patient and questions are answered. Patient is able to drink a full glass of water without difficulty. Patient is discussed with her primary care physician Dr. Tri Zhu who is in agreement with the current plan of management. Patient will be discharged home in improved condition. She is to follow up as instructed. She is to return to the emergency Department if her condition worsens or changes in any manner. Patient and PCP are in agreement with the current plan of management. Close follow-up was established for the patient with her primary care physician. She is discharge home in improved condition. Xray Xray : Xray: Soft Tissue Neck Interpretation: Normal (chest x-ray: No acute processes.), Interpreted by Me , Reviewed Written Report SIERRA LEMUS DO Nov 11, 2016 13:56
[2016-11-11 14:03] VITALS: PULSE 88; RESP 16; O2SAT 98
== END 2016-11-11 14:03 | disposition home or self-care (01) ==
LOC: ED 12:43
DX: T17.928A Food in respiratory tract, part unspecified causing other injury, initial encounter (principal); X58.XXXA Exposure to other specified factors, initial encounter; Y93.89 Activity, other specified; Y92.89 Other specified places as the place of occurrence of the external cause; Y99.8 Other external cause status

== ENCOUNTER 2016-12-18 07:31 | Emergency (ER) | payer MEDICARE ==
[~2016-12-18] VITALS: Ht 137.2 cm; Wt 69.1 kg
[~2016-12-18 07:31] MED LIST changes: -NYST60PO11 TOP
[2016-12-18 07:33] VITALS: Ht 137.2 cm; Wt 69.1 kg
--- OUTSIDE RECORDS SUMMARY | 2016-12-18 07:38 | XMS REPORT | Continuity of Care Document ---
Author Author [facility] Organization [facility] Address Unknown Phone Unavailable Allergies Medications Problems Procedures Results Encounters ACCT No. Visit Date/Time Discharge Status Pt. Type Provider Facility Loc./Unit Complaint [id number] 07/24/2013 10:34:00 07/24/2013 23 :59:59 CLS Outpatient
--- OUTSIDE RECORDS SUMMARY | 2016-12-18 07:38 | XMS REPORT | Continuity of Care Document ---
Author Author [facility] Organization [facility] Address Unknown Phone Unavailable Care Team Providers Care Piece Goods Packer Name Role Phone DAGO JALLOH DO Primary Care Physician [phone] Insurance Providers Payer Name Policy Number Subscriber Name Relationship Medicare [id number] Xin Julien 18 Self [facility] Plan [id number] Xin Julien 18 Self Advance Directives Directive [...] 50 Mg PO DAILY 03/07/10 Active [Saline [place]] NEEDED 10/25/08 10/27/08 Discontinued Ciprofloxacin Hcl 500 [...] F (96.8 - 99.1) Temperature (Calculated Celsius) 36.80151 degrees C (36.0 - 37.3) Pulse Rate [...] 5 DAYS Name: XIN JULIEN Unit #: [id number] : 1955 Sex: F Loc / Svc: ED DOS: 07/05/14 Signed Report #: [id number] DIAGNOSTIC IMAGING REPORT TYPE OF EXAM: CT [...] Encounters Encounter Location Date/Time Departed Emergency Room [facility] 07/05/14 10:27am Recent Diagnosis
--- OUTSIDE RECORDS SUMMARY | 2016-12-18 07:38 | XMS REPORT | Continuity of Care Document ---
Author Author [facility] Organization [facility] Address Unknown Phone Unavailable Support Name Relationship Address Phone NORTH ZHU MD Caregiver [address] [place] [address] Unavailable SIERRA LEMUS DO Caregiver [address] [place] [address] Unavailable ERICH JULIEN (GADILEEPDIAN) Next Of Kin [address] [place], [place] [id number] Insurance Providers Guarantor Xin Julien Address [address] [place] [address] BROTH Email DENIED 16 Payer Medicare Policy Number [id number] Subscriber's Name Xin Julien Relationship 18 Self Effective Date 74 Advance Directives Directive Response Recorded Date/Time Advanced Directives Type None 11/11/16 12:48pm Chief Complaint and Reason for Visit Chief Complaint Acute Medical Problem Reason for Visit [id number] Problems Active Problems Medical Problem Onset Date [...] Resolved Past Problems Medical Problem Onset Date Choking episode Unknown Constipation Unknown UTI (urinary tract infection) Unknown [...] Fluticasone Propionate (Fluticasone Prop 50 Mcg/Actuation Nasal [place]) 120 [place]/16 G [place] 2 [place] Each Nostril Daily 01/11/15 Gabapentin 300 Mg [...] prior to procedure 03/25/16 Miconazole Nitrate (Aloe [place]) 56 Gm Oint...g. 1 Applic Topically As Needed 03/25/16 Montelukast Sodium (Singulair) 10 Mg Tablet 10 Mg Oral Daily 07/06 Multivitamin (Tab-A-Tavo) 1 Each Tablet 1 Tab Oral Daily 01/11/15 Mupirocin 22 Gm Oint...g. 1 Applic Topically Twice A Day apply to tata area 03/25/16 Nystatin 15 Applic/15 G Cr 1 Applic Topically Three Times A Day 03/25/16 Polyethylene Glycol 3350 (Miralax) [...] Three Times A Day 10/27/08 Discontinued Saline [place] , As Needed 10/25/08 Discontinued Trazodone Hcl 50 Mg Tablet, 1 Tab Oral Daily 03/07/10 Discontinued Triamcinolone Acetonide (Kenalog 0.1%) 80 Gm Cr, 80 Gm Topical Twice A Day Discontinued Social History Social History Problem Response Recorded Date/Time Onset Date Status Hx Substance Use No 11/11/2016 1:03pm Not Applicable Not Applicable Hx Alcohol Use No 11/11/2016 1:03pm Not Applicable Not Applicable Has the pt used tobacco in the last 12 months No 07/09/2015 12:57pm Not Applicable Not Applicable Tobacco Usage none 07/06/2015 12:47pm Not Applicable Not Applicable Query Response Start Date Stop Date Smoking Status Never smoker Hospital Discharge Instructions No hospital discharge instructions. Plan of Care Discharge Date 11/11/16 2:03pm Disposition 01 DISCHARGED HOME, SELF-CARE Condition at Discharge Improved Instructions/Education Provided Choking in Children (ED) Prescriptions See Medication Section Referrals NORTH ZHU MD Order Date: 1 Address: [address] [place] [id number] Note: Care Plan and Goals Physician Care Plan Problem: Choking Episode Goal: Follow up with primary care provider [...] No 01/11/15 7:45am Influenza Vaccine Hx MAY 2016 11/11/16 1:03pm Vital Signs Acute Vital Signs Vital Response Date/Time Temperature (Fahrenheit) 98.6 deg F (96.8 - 99.1) 11/11/2016 12:48pm Temperature (Calculated Celsius) 37.86093 degrees C (36.0 - 37.3) 11/11/2016 12:48pm Pulse Rate (adult) 88 bpm (60 - 100) 11/11/2016 2:03pm Respiratory Rate 16 breaths/min (10 - 20) 11/11/2016 2:03pm O2 Sat by Pulse Oximetry 98 % (90 - 100) 11/11/2016 2:03pm Blood Pressure 137/75 mm Hg 11/11/2016 12:48pm Height (Feet) 4 feet 11/11/2016 12:48pm Height (Inches) 6.00 inches 11/11/2016 12:48pm Weight (Kilograms) 68.900 kg 11/11/2016 12:48pm Body Mass Index (BMI) 36.0 11/11/2016 12:48pm Results Laboratory Results Test Name Result Units [...] CLEAR 08/15/2016 11:48pm 08/16/2016 12:00am Urine Specific [place] 1.010 L 1.015-1.025 08/15/2016 11:48pm 2016 12:00am [...] Date/Time Result Status Blood Culture Peripheral/Iv Start NO GROWTH AFTER 5 DAYS 08/15/2016 11: 00pm 08/20/2016 11:03pm Final Urine Culture Urine, Voided-Not Cc-Midstream ESCHERICHIA COLI 08/16/2016 12 :01am 08/18/2016 8:19am Final Name: XIN JULIEN Unit #: [id number] : 1955 Sex: F Admit Date: Loc / Svc: ED Discharge Date: DIAGNOSTIC IMAGING REPORT Report #: [id number] [facility] DAVE Escalante INDICATION: ITS.REASON: choked on a fruit snack PROCEDURE: CHEST 2-VIEWS UPRIGHT (PA \\T\\ LAT) Encounter: Initial COMPARISON: August 15, 2016 and March 25, 2016 FINDINGS: Increased interstitial markings in both lungs, similar to the prior study. This has a basilar predominance. No pneumothorax or pleural effusion. Heart size and mediastinal contours are stable. Pulmonary vascularity is unchanged. Impression: Similar appearance of the chest with increased interstitial markings, most of which are probably chronic. No focal pneumonia or aspiration identified. . Procedures Procedure Status Date Provider(s) Routine venipuncture Completed 08/15/16 Chest x-ray 2vw frontal&latl Completed 08/15/16 Comprehen metabolic panel Completed 08/15/16 Urinalysis auto w/scope Completed 08/15/16 Assay of lactic acid Completed 08/15/16 Procalcitonin (pct) Completed 08/15/16 Complete cbc w/auto diff wbc Completed 08/15/16 Blood culture for bacteria Completed 08/15/16 Blood culture for bacteria Completed 08/15/16 Culture aerobic identify Completed 08/15/16 Urine culture/colony count Completed 08/15/16 Microbe susceptible yokasta Completed 08/15/16 Influenza a/b ag ia Completed 08/15/16 Hydrate iv infusion add-on Completed 08/15/16 Ther/proph/diag inj iv push Completed 08/15/16 Emergency dept visit Completed 08/15/16 [id number] ITEM OR SERVICE Completed 08/15/16 [id number] ITEM OR SERVICE Completed 08/15/16 [id number]"INJECTION, CIPROFLOXACIN FOR INTRAVENOUS INFUSION, 20 Completed [id number]"INFUSION, NORMAL SALINE SOLUTION , 1000 CC" Completed 08/15/16 Encounters Encounter Location Arrival/Admit Date Discharge/Depart Date Attending Provider Departed Emergency Room [facility] 11/11/16 12:43pm 11/11/16 2: 03pm SIERRA LEMUS DO Departed Emergency Room [facility] 08/15/16 10:19pm 08/16/16 1: 40am WARD BLKAE MD Recent Diagnosis
--- OUTSIDE RECORDS SUMMARY | 2016-12-18 07:38 | XMS REPORT | Continuity of Care Document ---
Author Author [facility] Organization [facility] Address Unknown Phone Unavailable Care Team Providers Care Electrical Sign Wirer Name Role Phone DAGO JALLOH DO Primary Care Physician [phone] Insurance Providers Payer Name Policy Number Subscriber Name Relationship Medicare [id number] Xin Julien 18 Self [facility] Plan [id number] Xin Julien 18 Self Advance Directives Directive [...] 50 Mg PO DAILY 03/07/10 Active [Saline [place]] NEEDED 10/25/08 10/27/08 Discontinued Ciprofloxacin Hcl 500 [...] F (96.8 - 99.1) Temperature (Calculated Celsius) 37.59678 degrees C (36.0 - 37.3) Pulse Rate [...] Encounters Encounter Location Date/Time Departed Emergency Room [facility] 10/17/14 8:50am Recent Diagnosis
--- NOTE | 2016-12-18 07:57 | ERPDOC ---
Departure Disposition Decision Date: December 18, 2016 Disposition Decision Time: 08:46 Disposition: 01 DISCHARGED HOME, SELF-CARE Impression Impression Impression: Primary Impression: Fall Additional Impression: Closed head injury Severity: Moderate Condition: Improved Seen By: Physician only Referrals: NORTH ZHU MD (Family) Patient Instructions: Fall Prevention (ED) Problems/Meds/Labs Reviewed?: Yes Medications reviewed and manag: Yes Additional Instructions: Fall precautions Follow up care ordered?: Yes Mental Status: Alert, Oriented HPI - Fall/Injury General Chief Complaint: Fall Stated Complaint: FALL Time Seen by Provider: 07:54 HPI - Fall/Injury Allergies: Coded Allergies: amoxicillin (Verified Allergy, Unknown, 12/18/16) tomato (Verified Allergy, Unknown, 12/18/16) Uncoded Allergies: metal jewlery (Allergy, Mild, ALLERGIC DERMATITIS, 01/11/15) Past History Patient Surgical History Cataracts Past Medical History Metabolic: hypothyroidism ENMT: sinusitis Hx Echocardiogram: No Female: UTI Neurological: chronic disability, other Surgical History General: other Family History Family PMH: FOUND: other Vaccines Hx Influenza Vaccination: Yes (05/2015) Hx Pneumococcal Vaccination: No Hx Tetanus Diptheria: Yes (06/24/04) Hx Tetanus, Diptheria, Pertuss: No Social History Substance Use Type: does not use Alcohol Intake: none Housing: other Physical Exam General Vitals and Pain First Documented Vital Signs Date Time Temp Pulse Resp B/P Pulse Ox O2 Delivery O2 Flow Rate FiO2 12/18/16 07:33 97.6 63 16 115/56 96 Room Air Weight: Kilograms: 69.100 Height (feet): 4 Height (inches): 6.00 Triage Pain Scale: Progress Results/Orders Orders Procedure Category Date Status Time Ct Head W/O Contrast CT 12/18/[address] Cervical Spine W/O CT 12/18/16 Resulted Contrast BERKLEY CASTORENA MD December 18, 2016 07:57
[2016-12-18] MEDS ORDERED: TEMA30CA PO (07:58)
[2016-12-18] MEDS ORDERED: L. A1CAP11 (07:58)
--- NOTE | 2016-12-18 08:03 | NUR ---
RADIOLOGY PT TO RADIOLOGY PER CART
--- NOTE | 2016-12-18 08:12 | NUR ---
RADIOLOGY PT FROM RADIOLOGY PER CART
--- OUTSIDE RECORDS SUMMARY | 2016-12-18 08:16 | XMS REPORT | Continuity of Care Document ---
Author Author [facility] Organization [facility] Address Unknown Phone Unavailable Care Team Providers Care Rn Cardiology Name Role Phone DAGO JALLOH DO Primary Care Physician [phone] Insurance Providers Payer Name Policy Number Subscriber Name Relationship Medicare [id number] Xin Julien 18 Self [facility] Plan [id number] Xin Julien 17 Self Advance Directives Directive [...] 50 Mg PO DAILY 03/07/10 Active [Saline [place]] NEEDED 10/25/08 10/27/08 Discontinued Ciprofloxacin Hcl 500 [...] F (96.8 - 99.1) Temperature (Calculated Celsius) 36.98702 degrees C (36.0 - 37.3) Pulse Rate [...] 5 DAYS Name: XIN JULIEN Unit #: [id number] : 1955 Sex: F Loc / Svc: ED DOS: 07/05/14 Signed Report #: [id number] DIAGNOSTIC IMAGING REPORT TYPE OF EXAM: CT [...] Encounters Encounter Location Date/Time Departed Emergency Room [facility] 07/05/14 10:27am Recent Diagnosis
--- OUTSIDE RECORDS SUMMARY | 2016-12-18 08:16 | XMS REPORT | Continuity of Care Document ---
Author Author [facility] Organization [facility] Address Unknown Phone Unavailable Allergies Medications Problems Procedures Results Encounters ACCT No. Visit Date/Time Discharge Status Pt. Type Provider Facility Loc./Unit Complaint [id number] 07/24/2013 10:34:00 07/24/2013 23 :59:59 CLS Outpatient
--- OUTSIDE RECORDS SUMMARY | 2016-12-18 08:16 | XMS REPORT | Continuity of Care Document ---
Author Author [facility] Organization [facility] Address Unknown Phone Unavailable Care Team Providers Care Purse Framer Name Role Phone DAGO JALLOH DO Primary Care Physician [phone] Insurance Providers Payer Name Policy Number Subscriber Name Relationship Medicare [id number] Xin Julien 17 Self [facility] Plan [id number] Xin Julien 17 Self Advance Directives Directive [...] 50 Mg PO DAILY 03/07/10 Active [Saline [place]] NEEDED 10/25/08 10/27/08 Discontinued Ciprofloxacin Hcl 500 [...] F (96.8 - 99.1) Temperature (Calculated Celsius) 37.09924 degrees C (36.0 - 37.3) Pulse Rate [...] Encounters Encounter Location Date/Time Departed Emergency Room [facility] 10/17/14 8:50am Recent Diagnosis
--- NOTE | 2016-12-18 08:19 | DI ---
Indication: ITS.REASON: fall, difficult ms exam PROCEDURE: CT HEAD W/O CONTRAST: Encounter: Initial Comparison: January 11, 2015 Technique: Axial CT images through the head were performed without contrast. Iterative Reconstruction dose reducing technique was utilized. FINDINGS: Moderate atrophy. The ventricles are of normal size, shape, and configuration for the patient's age. There is no evidence of acute intracranial hemorrhage, midline displacement, or mass effect. There are scattered areas of low attenuation in the white matter which most likely represent changes of chronic microvascular ischemia. The CT attenuation of the brain parenchyma is otherwise normal within the cerebellum, brain stem, and cerebral hemispheres. The tympanic cavities and mastoid air cells are free of appreciable disease. There are no definite fractures of the skull base, calvarium, or visualized portion of the midface. IMPRESSION: No CT evidence of acute traumatic intracranial injury. .
--- NOTE | 2016-12-18 08:21 | DI ---
Indication: ITS.REASON: fall, ms changes PROCEDURE: CT CERVICAL SPINE W/O CONTRAST: Encounter: Initial Comparison: None Technique: Axial CT images through the cervical spine were performed without contrast. Coronal and sagittal reformatted images were also obtained. Automated Exposure Control and Iterative Reconstruction dose reducing techniques were utilized. FINDINGS: The alignment of the cervical spine is normal. Moderate multilevel degenerative changes are present. There is no evidence of acute fracture or subluxation of the cervical spine. The atlantoaxial articulation, dens, and upper cervical spine demonstrate no subluxation. Large anterior osteophytes.The paraspinal soft tissues and spinal canal appear unremarkable. IMPRESSION: No acute traumatic abnormality of the cervical spine. .
--- NOTE | 2016-12-18 08:40 | NUR ---
STATUS PT RESTING AT THIS TIME WITHOUT COMPLAINTS
--- NOTE | 2016-12-18 08:48 | ERPDOC ---
Departure Disposition: 01 DISCHARGED HOME, SELF-CARE Impression Impression Impression: Primary Impression: Fall Additional Impression: Closed head injury Condition: Improved Referrals: NORTH ZHU MD (Family) Patient Instructions: Fall Prevention (ED) Additional Instructions: Fall precautions Mental Status: Alert, Oriented HPI - Fall/Injury General Chief Complaint: Fall Stated Complaint: FALL Time Seen by Provider: 07:54 HPI - Fall/Injury Initial Comments 61 yo Female living at [facility], fell and struck head. Allergies: Coded Allergies: amoxicillin (Verified Allergy, Unknown, 12/18/16) tomato (Verified Allergy, Unknown, 12/18/16) Uncoded Allergies: metal jewlery (Allergy, Mild, ALLERGIC DERMATITIS, 01/11/15) Past History Patient Surgical History Cataracts Past Medical History Metabolic: hypothyroidism ENMT: sinusitis Hx Echocardiogram: No Female: UTI Neurological: chronic disability, other Surgical History General: other Family History Family PMH: FOUND: other Vaccines Hx Influenza Vaccination: Yes (05/2015) Hx Pneumococcal Vaccination: No Hx Tetanus Diptheria: Yes (06/24/04) Hx Tetanus, Diptheria, Pertuss: No Social History Substance Use Type: does not use Alcohol Intake: none Housing: other Physical Exam General Vitals and Pain First Documented Vital Signs Date Time Temp Pulse Resp B/P Pulse Ox O2 Delivery O2 Flow Rate FiO2 12/18/16 07:33 97.6 63 16 115/56 96 Room Air Weight: Kilograms: 69.100 Height (feet): 4 Height (inches): 6.00 Triage Pain Scale: Progress Results/Orders Orders Procedure Category Date Status Time Ct Head W/O Contrast CT 12/18/[address] Cervical Spine W/O CT 12/18/16 Resulted Contrast BERKLEY CASTORENA MD December 18, 2016 08:48
[2016-12-18 09:00] VITALS: BP 107/63; PULSE 62; RESP 14; TEMP 97.6; O2SAT 97
--- NOTE | 2016-12-18 09:00 | NUR ---
DISMISSAL DISMISSAL INSTRUCTIONS TO [facility]. PT ASSISTED TO WC WITHOUT INCIDENT AND TO LOBBY TO WAIT FOR DYE CAN OPERATOR.
== END 2016-12-18 09:00 | disposition home or self-care (01) ==
LOC: ED 07:31
DX: S09.90XA Unspecified injury of head, initial encounter (principal); W19.XXXA Unspecified fall, initial encounter; Y93.9 Activity, unspecified; Y92.89 Other specified places as the place of occurrence of the external cause; Y99.8 Other external cause status

== ENCOUNTER 2017-09-17 12:57 | Inpatient (IN) ==
--- NOTE | 2017-09-17 13:22 | Emergency Department Report ---
URI/Sore Throat HPI - General Chief Complaint: Upper Respiratory Infection Stated Complaint: cough, not eating, weakness Time Seen by Provider: 09/17/17 13:19 Source: other (care provider) Mode of arrival: wheelchair Limitations: other (Downs syndrome) - History of Present Illness HPI Narrative: Pt is a [facility] resident who presents with a cough for about 24 hours. Pt had a chest xray done yesterday which was clear per care provider but continues to cough up yellow sputum. She is refusing to eat. Unknown fever, some diarrhea. MD Complaint: cough Onset (ago): day(s) Duration: constant Relieving factors: nothing Description of mucous: yellow Associated symptoms: diarrhea Treatments prior to arrival: none - Related Data Home Medications Medication Instructions Recorded Confirmed Montelukast Sodium [Singulair] 10 mg PO DAILY #0 03/07/10 09/17/17 Fluticasone Nasal [place] [Flonase] 2 spray EA NOSTRIL DAILY #0 01/11/15 09/17/17 Carbamide Peroxide Ear Drops 5 drop EACH EAR BID PRN #0 03/25/16 09/17/17 [Debrox] Cholecalciferol [Vit. D-3] 1,500 unit PO DAILY #0 03/25/16 09/17/17 Gabapentin 300 mg PO HS #0 03/25/16 09/17/17 Glucosamine 1,500 mg PO BID #0 03/25/16 09/17/17 Glucosamine 500 mg PO WS #0 03/25/16 09/17/17 Ketoconazole [Nizoral] 1 applicatio TOP HS #0 03/25/16 09/17/17 Loperamide [Imodium] 2 mg PO QID PRN #0 03/25/16 09/17/17 Nystatin Cream [Mycostatin] 1 applicatio TOP TID PRN #0 03/25/16 09/17/17 Calcium Carbonate [Calcium] 1,000 mg PO Q4H PRN 03/15/17 09/17/17 Clotrimazole 1% Cream [LOTRIMIN 1 applicatio TOP BID PRN 03/15/17 09/17/17 Cream] Guaifenesin Oral Liq [Robitussin] 100 - 200 mg PO Q4-6HR PRN 03/15/17 09/17/17 Loratadine [Claritin] 10 mg PO DAILY 03/15/17 09/17/17 Magnesium Hydroxide [Milk of 30 ml PO DAILY PRN 03/15/17 09/17/17 Magnesia] Sennosides/Docusate Sodium 2 tab PO BID PRN 03/15/17 09/17/17 [Senokot-S Tablet] Temazepam [Restoril] 15 mg PO HS 03/15/17 09/17/17 Hydrocortisone 1% Cream 1 applicatio TOP BID PRN 05/11/17 09/17/17 [Cortizone-10 Cream] Chlorhexidine Gluconate [Betasept] 1 applicatio TP DAILY 06/03/17 09/17/17 Lactobacillus Acidophilus 1 cap PO DAILY 06/03/17 09/17/17 [Acidophilus] Nystatin [Nystatin] 1 applicatio TOP BID 06/03/17 09/17/17 Tolnaftate [Tinactin] 1 applicatio TP BID PRN 06/03/17 09/17/17 Vicks Vaporub 1 applicatio TP HS 06/03/17 09/17/17 Acetaminophen [Acetaminophen Extra 1,000 mg PO Q4H PRN 09/17/17 09/17/17 Strength] Albuterol HFA Inhaler [Ventolin 2 puff INH QID 09/17/17 09/17/17 Hfa 90 mcg/actuation] Desonide Cream [Desowen] 1 applicatio TOP BID PRN 09/17/17 09/17/17 Guaifenesin/Dextromethorphan 10 ml PO Q4H PRN 09/17/17 09/17/17 [Robafen Dm Cgh-Chest Andrez Syrp] LORazepam [Ativan] 0.5 mg PO DAILY PRN 09/17/17 09/17/17 Levothyroxine Sodium 75 mcg PO ACB 09/17/17 09/17/17 Mi Acid Suspension 20 ml PO Q4H PRN 09/17/17 09/17/17 Multivitamin [One Daily] 1 tab PO DAILY 09/17/17 09/17/17 Mupirocin Ointment [Bactroban 1 applicatio TP BID PRN 09/17/17 09/17/17 Ointmment] Peg 3350 238 G Bottle [Miralax] 17 gm PO DAILY PRN 09/17/17 09/17/17 Zinc Oxide [Desitin] 1 applicatio TP PRN PRN 09/17/17 09/17/17 risperiDONE [Risperidone] 0.5 mg PO HS 09/17/17 09/17/17 Allergies Allergy/AdvReac Type Severity Reaction Status Date / Time amoxicillin Allergy Unknown Verified 09/17/17 13:08 tomato Allergy Unknown Verified 09/17/17 13:08 metal jewlery Allergy Mild ALLERGIC Uncoded 09/17/17 13:08 DERMATITIS Review of Systems All systems: reviewed and negative except as stated Constitutional: Reports: as per HPI Respiratory: Reports: as per HPI Gastrointestinal: Reports: as per HPI Neurological: Reports: as per HPI Psychiatric: Reports: as per HPI [facility] Patient Stated Medical History Cataracts Yes Other HEENT Yes: keratoconus,allergic rhinitis Bronchitis Yes Other Yes: candidiasis Cellulitis Yes: face Other Infectious Yes: syphilis as child Obsessive Compulsive Disorder Yes: with poor insight Other Behavioral Health Yes: Down's Post Menopausal Yes - Social History Smoking status: Never smoker Physical Exam - Limitations Limitations: physical limitation (Downs syndrome), other (Down Syndrome) - General General appearance: anxious (aggitated and uncooperative with exam) - Normal Exams: Head:: Normocephalic without trauma Neck:: Full range of motion, without adenopathy Cardiovascular:: Regular rate and rhythm, without murmur or gallop Abdomen:: Bowel sounds positive, soft, non-tender, non-distended Musculoskeletal:: No tenderness, or deformity noted, good range of motion, all extremities Integumentary:: No rashes Neurological:: Patient is alert Psychiatric:: Patient exhibits (anxious and aggitated behavior) - Expanded Respiratory Exam Location: Left: rhonchi, Right: rhonchi, Lower: rhonchi Course Vital Signs Temperature 100.6 F H 09/17/17 13:09 Pulse Rate 63 09/17/17 13:09 Blood Pressure 98/51 09/17/17 13:09 Pulse Oximetry 93 09/17/17 13:09 Temperature 99.1 F 09/20/17 08:00 Pulse Rate 84 09/20/17 08:00 Respiratory Rate 18 09/20/17 11:03 Blood Pressure 110/61 09/20/17 08:00 Pulse Oximetry 97 09/20/17 11:03 Upper Respiratory Infection - MDM Narrative Medical decision making narrative: Pt had episode of low BP and SpO2 in the 80s while asleep. Pt provided supplemental O2. CXR ordered as well as Duoneb and basic labs. Duoneb treatment resulted in coughing up of large amounts of secretions per RT. Diagnostic results consistent with RLL pneumonia. Dr Mooney notified for admission. Pt remains agitated with supplemental O2 and peripheral IV, Ativan given. - Differential Diagnosis Differential diagnosis: Likely: upper respiratory infection, viral infection, bronchitis, influenza - Lab Data Attestation: I reviewed the patient's lab results. Result diagrams: 09/20/17 04:33 09/20/17 04:33 Lab Results 09/17/17 09/17/17 09/17/17 Range/Units 13:30 14:33 14:33 WBC 17.8 H (4.5-11.0) T/MM3 RBC 4.55 (4.00-5.20) M/MM3 Hgb 15.0 (12-16) GM/DL Hct 45.0 (36-46) % MCV 98.9 (80-100) UM3 MCH 33.0 (26-34) UUG MCHC 33.3 (31-37) GM/DL RDW Std Deviation 50.9 H (36.9-50.2) FL Plt Count 222 (130-400) T/MM3 MPV 10.2 (9.4-12.4) UM3 Immature Gran % (Auto) Not performed Neut % (Auto) Not performed Lymph % (Auto) Not performed [place] % (Auto) Not performed Eos % (Auto) Not performed Baso % (Auto) Not performed Neut # (Auto) Not performed Lymph # (Auto) Not performed [place] # (Auto) Not performed Eos # (Auto) Not performed Baso # (Auto) Not performed Abs Immat Gran (auto) Not performed Neutrophils % (Manual) 81.0 H (33-66) % Band Neutrophils % 5.0 (0-6) % Lymphocytes % (Manual) 11.0 L (23-45) % Monocytes % (Manual) 3.0 (0-9.0) % Neutrophils # (Manual) 14.4 H (1.8-7.7) T/MM3 Band Neutrophils # 0.9 T/MM3 Lymphocytes # (Manual) 2.0 (1-4.8) T/MM3 Monocytes # (Manual) 0.5 (0-0.8) T/MM3 RBC Morph Comment Normal Turbidity < 20 (0-20) Sodium 147 H (134-144) MEQ/L Potassium 4.0 (3.6-5) MEQ/L Chloride 108 H (98-107) MEQ/L Carbon Dioxide 27 (22-30) MEQ/L Anion Gap 12 (5-15) MEQ/L BUN 21.0 H (7-17) MG/DL Creatinine 1.1 (0.7-1.2) MG/DL GFR Calculation 50 BUN/Creatinine Ratio 19 (6-26) RATIO Glucose 109 (65-110) MG/DL Calculated Osmolality 286 H (261-280) MOSM/KG Calcium 9.2 (8.4-10.2) MG/DL Total Bilirubin 0.50 (0.20-1.30) MG/DL Icterus Index < 2 (0-7) AST 29 (14-36) U/L ALT 41 (9-52) U/L Alkaline Phosphatase 115 (38-126) U/L Total Protein 7.3 (6.3-8.2) G/DL Albumin 4.1 (3.5-5.0) G/DL Globulin 3.2 (2.4-3.6) G/DL Albumin/Globulin Ratio 1.3 (1.1-2.2) RATIO Specimen Hemolysis < 15 (0-25) Influenza Type A (PCR) Negative (Negative) Influenza Type B (PCR) Negative (Negative) - Radiology Data Attestation: I reviewed the patient's radiology results. (X ray per Dr Mclain possible pneumonia) Disposition Clinical Impression: Pneumonia [place] [facility]: Stable for Transport - Seen By: midlevel
[2017-09-17] MEDS: ACETAMINOPHEN 500 MG TABLET PO PRN ×2 (13:30→23:55)
[2017-09-17] MEDS ORDERED: ALBUTEROL/IPRATROPIUM 2.5mg-0.5mg/3ml NEB AEROSOL ONE (14:14)
--- NOTE | 2017-09-17 14:56 | XRay Report ---
Indication: cough fever PROCEDURE: XR chest 1V: Encounter: Initial Comparison: September 16, 2017 Findings: Hazy infrahilar airspace opacity on the right. No pleural effusion or pneumothorax. Heart size and mediastinal contours are stable. Pulmonary vascularity appears normal. Impression: Right infrahilar infiltrate could be due to atelectasis, pneumonia or aspiration. .
[2017-09-17] MEDS: SALINE FLUSH 10ml SYRINGE IVF PRN (15:55)
--- NOTE | 2017-09-17 17:33 | History & Physical Report ---
History of Present Illness Date: 09/17/17 HPI: The following information is gleaned from the ER chart as patient is unable to effectively communicate with me: Pt is a [facility] resident who presents with a cough for about 24 hours. Pt had a chest xray done yesterday which was clear per care provider but continues to cough up yellow sputum. She is refusing to eat. Unknown fever, some diarrhea. Patient has Down's syndrome and resides in a longterm. She had a twin sister ( also with Down's) who within the last year. Patient had chest x-ray in the ER showing a right infrahilar infiltrate which could be due to atelectasis versus pneumonia versus aspiration. White blood cell count was elevated at 17.8. Sodium elevated at 147. Given these findings and her disposition, hospitalist service was contacted to proceed with hospital admission. Review of Systems ROS unobtainable: due to mental status Past Medical History Medical History Down syndrome Hypothyroidism Atopic dermatitis Keratoconus OCD/anxiety Allergic rhinitis Insomnia History of syphilis as a child Patient is edentulous Surgical History: Cataract removal bilaterally 1886, teeth removed in 1987, corneal transplant 2000 Family History: Unable to elicit from patient. Information not found in records from [facility]. Twin sister with Down's and valvular disease. Family History Updates: updated - Social History Smoking status: Never smoker Substance use type: does not use Alcohol intake frequency: does not drink Current occupational status: disabled [facility] residence[facility] Social history: PCP-Dr. Tri Jose Dentist-Dr. Janes Sargent Franchise Field Consultant-Dr. Sherwin Benjamin Graphic Artist-Dr. Chan Psychiatrist-Nicole Miller APRN Society Editor-Dr. Rosales Medications Home Medications Medication Instructions Recorded Confirmed Type Montelukast Sodium [Singulair] 10 mg PO DAILY #0 03/07/10 09/17/17 History Fluticasone Nasal [place] [Flonase] 2 spray EA NOSTRIL DAILY #0 01/11/15 09/17/17 History Carbamide Peroxide Ear Drops 5 drop EACH EAR BID PRN #0 03/25/16 09/17/17 History [Debrox] Cholecalciferol [Vit. D-3] 1,500 unit PO DAILY #0 03/25/16 09/17/17 History Gabapentin 300 mg PO HS #0 03/25/16 09/17/17 History Glucosamine 1,500 mg PO BID #0 03/25/16 09/17/17 History Glucosamine 500 mg PO WS #0 03/25/16 09/17/17 History Ketoconazole [Nizoral] 1 applicatio TOP HS #0 03/25/16 09/17/17 History Loperamide [Imodium] 2 mg PO QID PRN #0 03/25/16 09/17/17 History Nystatin Cream [Mycostatin] 1 applicatio TOP TID PRN #0 03/25/16 09/17/17 History Calcium Carbonate [Calcium] 1,000 mg PO Q4H PRN 03/15/17 09/17/17 History Clotrimazole 1% Cream [LOTRIMIN 1 applicatio TOP BID PRN 03/15/17 09/17/17 History Cream] Guaifenesin Oral Liq [Robitussin] 100 - 200 mg PO Q4-6HR PRN 03/15/17 09/17/17 History Loratadine [Claritin] 10 mg PO DAILY 03/15/17 09/17/17 History Magnesium Hydroxide [Milk of 30 ml PO DAILY PRN 03/15/17 09/17/17 History Magnesia] Sennosides/Docusate Sodium 2 tab PO BID PRN 03/15/17 09/17/17 History [Senokot-S Tablet] Temazepam [Restoril] 15 mg PO HS 03/15/17 09/17/17 History Hydrocortisone 1% Cream 1 applicatio TOP BID PRN 05/11/17 09/17/17 History [Cortizone-10 Cream] Chlorhexidine Gluconate [Betasept] 1 applicatio TP DAILY 06/03/17 09/17/17 History Lactobacillus Acidophilus 1 cap PO DAILY 06/03/17 09/17/17 History [Acidophilus] Nystatin [Nystatin] 1 applicatio TOP BID 06/03/17 09/17/17 History Tolnaftate [Tinactin] 1 applicatio TP BID PRN 06/03/17 09/17/17 History Vicks Vaporub 1 applicatio TP HS 06/03/17 09/17/17 History Acetaminophen [Acetaminophen Extra 1,000 mg PO Q4H PRN 09/17/17 09/17/17 History Strength] Albuterol HFA Inhaler [Ventolin 2 puff INH QID 09/17/17 09/17/17 History Hfa 90 mcg/actuation] Desonide Cream [Desowen] 1 applicatio TOP BID PRN 09/17/17 09/17/17 History Guaifenesin/Dextromethorphan 10 ml PO Q4H PRN 09/17/17 09/17/17 History [Robafen Dm Cgh-Chest Andrez Syrp] LORazepam [Ativan] 0.5 mg PO DAILY PRN 09/17/17 09/17/17 History Levothyroxine Sodium 75 mcg PO ACB 09/17/17 09/17/17 History Mi Acid Suspension 20 ml PO Q4H PRN 09/17/17 09/17/17 History Multivitamin [One Daily] 1 tab PO DAILY 09/17/17 09/17/17 History Mupirocin Ointment [Bactroban 1 applicatio TP BID PRN 09/17/17 09/17/17 History Ointmment] Peg 3350 238 G Bottle [Miralax] 17 gm PO DAILY PRN 09/17/17 09/17/17 History Zinc Oxide [Desitin] 1 applicatio TP PRN PRN 09/17/17 09/17/17 History risperiDONE [Risperidone] 0.5 mg PO HS 09/17/17 09/17/17 History Allergies Allergy/AdvReac Type Severity Reaction Status Date / Time amoxicillin Allergy Unknown Verified 09/17/17 13:08 tomato Allergy Unknown Verified 09/17/17 13:08 metal jewlery Allergy Mild ALLERGIC Uncoded 09/17/17 13:08 DERMATITIS Exam Vital Signs: Temperature 100.4 F 09/17/17 16:10 Pulse Rate 94 09/17/17 16:15 Respiratory Rate 18 09/17/17 16:15 Blood Pressure 134/61 09/17/17 16:15 Pulse Oximetry 91 09/17/17 16:15 Height/Weight/BMI: Height 1.37 m Weight 59.6 kg Body Mass Index 31.6 - Constitutional Present: no acute distress, well nourished, well developed, obese - Routine HEENT Exam Head: Present: normocephalic, atraumatic Eye: Absent: conjunctival icterus, periorbital swelling Comments: Down's facies - Routine Neck Exam Present: supple. Absent: lymphadenopathy, thyromegaly - Routine Respiratory Exam Absent: CTA bilaterally Comments: Course throughout-most prominent in the right lung - Routine Cardiovascular Exam Present: RRR, no murmur - Routine Abdominal Exam Present: soft, normoactive bowel sounds. Absent: tenderness, distended - Routine Extremities Exam Present: no edema, normal capillary refill - Routine Skin Exam Present: dry, warm - Routine Neurological Exam Present: altered mental status. Absent: normal speech Patient does respond to verbal stimuli, however she is unintelligible with her responses. - Routine Psychiatric Exam Present: cooperative, unable to assess Results - Labs CBC & Chem 7: 09/17/17 14:33 09/17/17 14:33 - Imaging and Cardiology Chest x-ray Additional comments: Date of Exam: 09/17/17 Indication: cough fever PROCEDURE: XR chest 1V: Findings: Hazy infrahilar airspace opacity on the right. No pleural effusion or pneumothorax. Heart size and mediastinal contours are stable. Pulmonary vascularity appears normal. Impression: Right infrahilar infiltrate could be due to atelectasis, pneumonia or aspiration. Assessment and Plan (1) Aspiration pneumonia Current visit: Yes Status: Acute Assessment and Plan: Assessment Pneumonia - likely aspiration Leukocytosis-(17.8) present on admission Hypernatremia-(147) present on admission Downs syndrome Hypothyroidism Atopic dermatitis Keratoconus OCD/anxiety Allergic rhinitis Insomnia Obesity Vitamin D deficiency Plan Admit, inpatient, under the hospitalist service, Dr. Mooney attending. Expect her stay to exceed 2 overnights given her dx of pneumonia and comorbidities which will require IV fluids, IV antibiotics, O2 and Duonebs. Meropenem and vancomycin for coverage of aspiration pneumonia. It is noted that amoxicillin is listed as an allergy in the hospital patient chart, however, [facility] information lists no known drug allergies. Respiratory panel and sputum culture are pending. Rapid influenza testing in ER was negative. DuoNeb's, guaifenesin for respiratory symptoms. Start D5 half-normal saline for rehydration and hypernatremia. She received no fluids in the ER. Speech consult to evaluate swallowing function. Caregivers wish for her to be a full code at this time. Care to return to Dr. Tri Jose upon discharge. Case discussed with Dr. Mooney. Records reviewed from [facility]. DVT Prophylaxis: SCD's Resuscitation Status: Full Code - Physician Narrative Physician: Chris Mooney MD Narrative: Date: 09/17/17 Time: 1854 I have independently evaluated and examined this patient. I reviewed the chart, the patient's history, and the BEAD FORMING MACHINE OPERATOR/PA's documented findings as above. We discussed and formulated the assessment and plan as above with additions as below: The patient is somnolent. She did get Ativan in the ED. She cannot provide any hx. Her CM from [facility] is present and has some information. The patient has had a cough and not been herself for a couple of days. Sputum was reportedly clear yesterday but more yellow today. The patient has not been eating since yesterday. Her CM describes the food or drink going to the patients mouth but she does not swallow. NAD. Coarse. RRR w/o murmur. S/NT/ND +BS. No edema. [place]. Because of concern for aspiration PNA, will start meropenem and vancomycin. Monitor cx. Will try to avoid sedation. Patient is not likely to leave O2 on, per CM. Will start D51/2NS. ST will be consulted. Per CM, guardians have discussed code status in the past. Patient is a full code. Hospital Course Summary Disclaimer: The visit summary below is not to be considered part of the above Progress Note. Hospital Course: 09/17/17-hospital admission Admit, inpatient, under the hospitalist service, Dr. Mooney attending. Expect her stay to exceed 2 overnights given her dx of pneumonia and comorbidities which will require IV fluids, IV antibiotics, O2 and Duonebs. Meropenem and vancomycin for coverage of aspiration pneumonia. It is noted that amoxicillin is listed as an allergy in the hospital patient chart, however, [facility] information lists no known drug allergies. Respiratory panel and sputum culture are pending. Rapid influenza testing in ER was negative. DuoNeb's, guaifenesin for respiratory symptoms. Start D5 half-normal saline for rehydration and hypernatremia. She received no fluids in the ER. Speech consult to evaluate swallowing function. Caregivers wish for her to be a full code at this time. Care to return to Dr. Tri JOSE upon discharge. Case discussed with Dr. Mooney. Records reviewed from [facility].
[2017-09-17] MEDS ORDERED: VANCOMYCIN - PHARMACY CONSULT MC ONE (17:41)
[2017-09-17] MEDS ORDERED: ONDANSETRON 4 MG/2 ML INJECTION IVP PRN (17:43)
[2017-09-17] MEDS ORDERED: MEROPENEM 1 GM in NS 100 ML IV SCH (18:00)
[2017-09-17] MEDS ORDERED: MEROPENEM 1 GM in NS 50 ML IV SCH (18:00)
[2017-09-17] MEDS: D5-1/2NS 1,000 ML IV SCH (18:33)
[2017-09-17] MEDS: MEROPENEM 1 GM in NS 50 ML IV SCH (18:37)
[2017-09-17] MEDS: ALBUTEROL/IPRATROPIUM 2.5mg-0.5mg/3ml NEB AEROSOL SCH (19:15)
[2017-09-18] MEDS: MEROPENEM 1 GM in NS 50 ML IV SCH ×2 (05:22→17:50)
[2017-09-18] MEDS: ALBUTEROL/IPRATROPIUM 2.5mg-0.5mg/3ml NEB AEROSOL SCH ×4 (07:33→20:24)
[2017-09-18] MEDS: D5-1/2NS 1,000 ML IV SCH ×2 (08:07→23:15)
--- NOTE | 2017-09-18 08:52 | Pharmacy Consult-Antibiotics ---
Pharmacy Consult-Vancomycin - Laboratory Information WBC 18.4 T/MM3 (4.5-11.0) H 09/18/17 04:58 BUN 24.0 MG/DL (7-17) H 09/18/17 04:58 Creatinine 1.3 MG/DL (0.7-1.2) H D 09/18/17 04:58 - Consult Information VANCOMYCIN CONSULT: Dx: Pneumonia Current Renal Function: S Cr = 1.3 mg/dl. Estimated Cr Cl ~ 41 mL/min. Essentially gave a Vancomycin bolus of 1,250 mg iv last every and I will continue to give Vancomycin 1,000 mg iv every 18 hours. Thanks for the protocol , Johnathan Van, Pharmacist.
--- NOTE | 2017-09-18 15:23 | Progress Note ---
- Date 09/18/17 Subjective: Patient more alert. Family from [place] is at bedside. Patient's speech is difficult to understand. She has to be reminded to keep O2 on. ST has recommended pureed diet, which is what she is on at [facility]. Patient has not been voiding often. She had 400 ml in bladder on scan. Sister thinks she is on a schedule for voiding at [facility]. Objective Vital signs: Temperature 98.9 F 09/18/17 11:30 Pulse Rate 100 09/18/17 11:30 Respiratory Rate 20 09/18/17 11:30 Blood Pressure 142/76 H 09/18/17 11:30 Pulse Oximetry 91 09/18/17 11:30 Height/Weight/BMI: Height 4 ft 6 in Weight 59.8 kg Body Mass Index 31.6 - Constitutional Present: no acute distress - Routine HEENT Exam ENT: Present: mucous membranes dry - Routine Respiratory Exam Present: crackles - Routine Cardiovascular Exam Present: RRR - Routine Abdominal Exam Present: soft, normoactive bowel sounds, non distended, non tender - Routine Extremities Exam Present: no edema - Routine Psychiatric Exam Present: cooperative Results - Labs CBC & Chem 7: 09/18/17 04:58 09/18/17 04:58 Microbiology Results: Microbiology 09/18/17 01:50 Sputum, Induced Gram Stain - Final 09/18/17 01:50 Sputum, Induced Sputum Culture - Preliminary Culture Initiated - Results Pending 09/18/17 01:52 Sputum, Expectorated Gram Stain - Final 09/18/17 01:52 Sputum, Expectorated Sputum Culture - Final Assessment and Plan (1) Aspiration pneumonia Current visit: Yes Status: Acute Assessment and Plan: Assessment Pneumonia - likely aspiration Leukocytosis-(17.8) present on admission Hypernatremia-(147) present on admission Downs syndrome Hypothyroidism Atopic dermatitis Keratoconus OCD/anxiety Allergic rhinitis Insomnia Obesity urinary retention Vitamin D deficiency Plan Meropenem and vancomycin for coverage of aspiration pneumonia. Sputum cx underway. (It is noted that amoxicillin is listed as an allergy in the hospital patient chart, however, [facility] information lists no known drug allergies.) Respiratory panel negative. DuoNeb's, guaifenesin for respiratory symptoms. D5 half-normal saline for rehydration and hypernatremia. Na is down. SCr up from 1.1 to 1.3. Monitor. Speech consulted. Restarting her normal puree diet. Will try voiding schedule to try to help with urine retention and incontinence. Ativan changed to iv b/c pt not taking meds and agitated. Will return to oral Ativan daily. Resume home risperidone, temazepam, gabapentin - Physician Narrative Narrative: Date: 09/18/17 Time: 1514 Hospital Course Summary Disclaimer: The visit summary below is not to be considered part of the above Progress Note. Hospital Course: 09/17/17-hospital admission Admit, inpatient, under the hospitalist service, Dr. Mooney attending. Expect her stay to exceed 2 overnights given her dx of pneumonia and comorbidities which will require IV fluids, IV antibiotics, O2 and Duonebs. Meropenem and vancomycin for coverage of aspiration pneumonia. It is noted that amoxicillin is listed as an allergy in the hospital patient chart, however, [facility] information lists no known drug allergies. Respiratory panel and sputum culture are pending. Rapid influenza testing in ER was negative. DuoNeb's, guaifenesin for respiratory symptoms. Start D5 half-normal saline for rehydration and hypernatremia. She received no fluids in the ER. Speech consult to evaluate swallowing function. Caregivers wish for her to be a full code at this time. Care to return to Dr. Tri ZHU upon discharge. Case discussed with Dr. Mooney. Records reviewed from [facility]. 09/18 Meropenem and vancomycin for coverage of aspiration pneumonia. Sputum cx underway. (It is noted that amoxicillin is listed as an allergy in the hospital patient chart, however, [facility] information lists no known drug allergies.) Respiratory panel negative. DuoNeb's, guaifenesin for respiratory symptoms. D5 half-normal saline for rehydration and hypernatremia. Na is down. SCr up from 1.1 to 1.3. Monitor. Speech consulted. Restarting her normal puree diet. Will try voiding schedule to try to help with urine retention and incontinence. Ativan changed to iv b/c pt not taking meds and agitated. Will return to oral Ativan daily. Resume home risperidone, temazepam, gabapentin
[2017-09-18] MEDS: LORazepam 0.5 MG TABLET PO PRN (16:30)
[2017-09-18] MEDS: NS FLUSH BAG 500ml IV PRN (18:00)
[2017-09-18] MEDS: GABAPENTIN 300 MG CAPSULE PO SCH (21:19)
[2017-09-18] MEDS: RisperiDONE 0.5 MG TABLET PO SCH (21:19)
[2017-09-18] MEDS: TEMAZEPAM 15 MG CAPSULE PO SCH (21:22)
[2017-09-19] MEDS: MEROPENEM 1 GM in NS 50 ML IV SCH ×2 (06:02→19:57)
[2017-09-19] MEDS: ALBUTEROL/IPRATROPIUM 2.5mg-0.5mg/3ml NEB AEROSOL SCH ×4 (06:43→19:34)
[2017-09-19] MEDS: LEVOTHYROXINE 75 MCG TABLET PO SCH (07:27)
[2017-09-19] MEDS: LORazepam 0.5 MG TABLET PO PRN (09:36)
[2017-09-19] MEDS: FLUTICASONE NASAL SPRAY 50mcg EA NOSTRIL SCH (09:52)
--- NOTE | 2017-09-19 11:56 | Progress Note ---
- Date 09/19/17 Subjective: Xin is seen today in follow up. She is resting. Sisters are at bedside. They report that her left eye is "drooping"- they feel like this is a change from yesterday. They do not feel that her face is drooping. No new weakness on left side in regards to motor function. They cannot tell if speech is changed due to normal behavior changes from her hospitalization. D/W family plan of care- Offered stroke work up if desired due to facial changes. They would like to hold off on this for now, as the changes are mostly just her eye. Pt. remains on high-flow oxygen- suspect this could be some of the issue. Family denies drainage or discoloration- will let us know if there is any drainage. Will treat eye with hydrating ointment, and humidify O2. Objective Vital signs: Temperature 99 F 09/19/17 07:42 Pulse Rate 83 09/19/17 07:42 Respiratory Rate 18 09/19/17 11:03 Blood Pressure 93/55 09/19/17 07:42 Pulse Oximetry 95 09/19/17 11:03 Height/Weight/BMI: Height 1.37 m Weight 61 kg Body Mass Index 31.6 - Constitutional Present: no acute distress, other (Restless, coarse cough on rare occasion.) - Routine HEENT Exam Eye: Present: conjunctivae pink (Right lower eye lid is a bit red. eyes are closed. No obvious drainage. ) - Routine Respiratory Exam Present: decreased breath sounds, rhonchi (occasional rhonchi. ), diminished air movement (A bit diminished. Coarse cough, rarely. No distress. ) - Routine Cardiovascular Exam Present: RRR, S1, S2 - Routine Abdominal Exam Present: soft, non distended, non tender - Routine Extremities Exam Present: no edema - Routine Skin Exam Present: intact, dry, warm - Routine Neurological Exam Present: moving all extremities. Absent: normal speech - Routine Psychiatric Exam Absent: normal affect, cooperative - Additional findings Additional findings: Chronic changes due to Down's syndrome. possible mild right facial droop? She is resistant to exam, and does not follow commands, so exam is a bit limited. D/ W family. Results - Labs CBC & Chem 7: 09/19/17 04:50 09/19/17 04:50 Microbiology Results: Microbiology 09/18/17 01:50 Sputum, Induced Gram Stain - Final 09/18/17 01:50 Sputum, Induced Sputum Culture - Preliminary 09/18/17 01:52 Sputum, Expectorated Gram Stain - Final 09/18/17 01:52 Sputum, Expectorated Sputum Culture - Final Assessment and Plan (1) Aspiration pneumonia Current visit: Yes Status: Acute Assessment and Plan: Assessment Pneumonia - likely aspiration Leukocytosis-(17.8) present on admission Hypernatremia-(147) present on admission Downs syndrome Hypothyroidism Atopic dermatitis Keratoconus OCD/anxiety Allergic rhinitis Insomnia Obesity urinary retention Vitamin D deficiency (It is noted that amoxicillin is listed as an allergy in the hospital patient chart, however, [facility] information lists no known drug allergies.) Plan 09/19/17 Meropenem and vancomycin for coverage of aspiration pneumonia. Sputum cx - polymicrobial, poorly specific. Leukocytosis ongoing, but bandemia is improving. Continue nebs and O2. Respiratory panel negative. Repeat CXR in AM. DuoNeb's, guaifenesin for respiratory symptoms. Continue IVF, some improvement in hydration. Speech consulted. Restarting her normal puree diet. Will try voiding schedule to try to help with urine retention and incontinence. Continue bladder scan to assess urinary retention. Ativan changed to iv b/c pt not taking meds and agitated. Will return to oral Ativan daily. Resume home risperidone, temazepam, gabapentin. eye droop- will add lacrilube BID and humidify O2 to help with dry eyes. Offered stroke w/u- family declined for now. Will continue to monitor. She remains a full code for now. DVT Prophylaxis: SCD's Resuscitation Status: Full Code - Physician Narrative Physician: Chris Mooney MD Narrative: Date: 09/19/17 Time: 1440 I have independently evaluated and examined this patient. I reviewed the chart, the patient's history, and the HEAD COOK/PA's documented findings as above. We discussed and formulated the assessment and plan as above with additions as below: Xin is up to the chair and eating. Family present and says she slept well overnight and took a nap this morning. Her right eye is much improved after lacri-lube. NAD. Decreased breath sounds. RRR. S/NT/ND +BS. No edema. Continue abx. May DC Vanco tomorrow if no cx info supports using it. Patient improving. WBC is trending up. Will monitor. Speech consulted. Continue her night-med regimen. DC iv Ativan. Hospital Course Summary Disclaimer: The visit summary below is not to be considered part of the above Progress Note. Hospital Course: 09/17/17-hospital admission Admit, inpatient, under the hospitalist service, Dr. Mooney attending. Expect her stay to exceed 2 overnights given her dx of pneumonia and comorbidities which will require IV fluids, IV antibiotics, O2 and Duonebs. Meropenem and vancomycin for coverage of aspiration pneumonia. It is noted that amoxicillin is listed as an allergy in the hospital patient chart, however, [facility] information lists no known drug allergies. Respiratory panel and sputum culture are pending. Rapid influenza testing in ER was negative. DuoNeb's, guaifenesin for respiratory symptoms. Start D5 half-normal saline for rehydration and hypernatremia. She received no fluids in the ER. Speech consult to evaluate swallowing function. Caregivers wish for her to be a full code at this time. Care to return to Dr. Tri ZHU upon discharge. Case discussed with Dr. Mooney. Records reviewed from [facility]. 09/18 Meropenem and vancomycin for coverage of aspiration pneumonia. Sputum cx underway. (It is noted that amoxicillin is listed as an allergy in the hospital patient chart, however, [facility] information lists no known drug allergies.) Respiratory panel negative. DuoNeb's, guaifenesin for respiratory symptoms. D5 half-normal saline for rehydration and hypernatremia. Na is down. SCr up from 1.1 to 1.3. Monitor. Speech consulted. Restarting her normal puree diet. Will try voiding schedule to try to help with urine retention and incontinence. Ativan changed to iv b/c pt not taking meds and agitated. Will return to oral Ativan daily. Resume home risperidone, temazepam, gabapentin 09/19/17 Meropenem and vancomycin for coverage of aspiration pneumonia. Sputum cx - polymicrobial, poorly specific. Leukocytosis ongoing, but bandemia is improving. Continue nebs and O2. Respiratory panel negative. Repeat CXR in AM. DuoNeb's, guaifenesin for respiratory symptoms. Continue IVF, some improvement in hydration. Speech consulted. Restarting her normal puree diet. Will try voiding schedule to try to help with urine retention and incontinence. Continue bladder scan to assess urinary retention. Ativan changed to iv b/c pt not taking meds and agitated. Will return to oral Ativan daily. Resume home risperidone, temazepam, gabapentin. eye droop- will add lacrilube BID and humidify O2 to help with dry eyes. Offered stroke w/u- family declined for now. Will continue to monitor. She remains a full code for now.
[2017-09-19] MEDS: LACRI-LUBE EYE OINT 3.5gm RIGHT EYE SCH ×2 (11:58→20:42)
[2017-09-19] MEDS: D5-1/2NS 1,000 ML IV SCH (16:57)
[2017-09-19] MEDS: RisperiDONE 0.5 MG TABLET PO SCH (20:37)
[2017-09-19] MEDS: GABAPENTIN 300 MG CAPSULE PO SCH (20:37)
[2017-09-19] MEDS: TEMAZEPAM 15 MG CAPSULE PO SCH (20:43)
[2017-09-19] MEDS: GUAIFENESIN 200mg/10ml ORAL LIQUID PO PRN (20:49)
[2017-09-20] MEDS: SALINE FLUSH 10ml SYRINGE IVF PRN (00:48)
[2017-09-20] MEDS: LEVOTHYROXINE 75 MCG TABLET PO SCH (06:24)
[2017-09-20] MEDS: ALBUTEROL/IPRATROPIUM 2.5mg-0.5mg/3ml NEB AEROSOL SCH ×4 (07:11→20:52)
--- NOTE | 2017-09-20 09:39 | XRay Report ---
Indication: PNEUMONIA PROCEDURE: XR chest 1V: Encounter: Initial Comparison: 09/17/2017 Findings: The examination is moderately expiratory in nature with scattered patchy somewhat nodular interstitial parenchymal opacity. No definite lobar consolidation or pleural effusion. There is prominence of the cardiac silhouette which may be accentuated by the AP portable technique. Trachea is midline. No subdiaphragmatic free air. Impression: Moderate patchy predominantly interstitial nodular [place] opacity suggesting mild CHF. Follow-up to resolution is recommended. .
[2017-09-20 10:02] VITALS: BMI 31.9
[2017-09-20] MEDS: FLUTICASONE NASAL SPRAY 50mcg EA NOSTRIL SCH (10:11)
[2017-09-20] MEDS: LACRI-LUBE EYE OINT 3.5gm RIGHT EYE SCH ×2 (10:12→20:02)
[2017-09-20] MEDS: D5-1/2NS 1,000 ML IV SCH (10:22)
[2017-09-20] MEDS: MEROPENEM 1 GM in NS 50 ML IV SCH ×2 (10:43→20:02)
--- NOTE | 2017-09-20 15:02 | Progress Note ---
- Date 09/20/17 Subjective: Patient is seen laying in bed. She is crying off and on, which her caregiver at [facility] reports is normal for her. She reports that she feels like she is acting more her normal self. She sees much improvement in Xin. Patient is eating and drinking well. She wants her IV out and she does not like her identification bracelet. She will not keep her oxygen on. Objective Vital signs: Temperature 99.1 F 09/20/17 08:00 Pulse Rate 84 09/20/17 08:00 Respiratory Rate 18 09/20/17 11:03 Blood Pressure 110/61 09/20/17 08:00 Pulse Oximetry 97 09/20/17 11:03 Height/Weight/BMI: Height 1.37 m Weight 60.1 kg Body Mass Index 31.9 - Constitutional Present: no acute distress, well nourished, well developed - Routine HEENT Exam Head: Present: normocephalic, atraumatic - Routine Respiratory Exam Present: CTA bilaterally. Absent: wheezes - Routine Cardiovascular Exam Present: RRR, no murmur - Routine Abdominal Exam Present: soft, non distended, non tender - Routine Extremities Exam Present: no edema, normal capillary refill - Routine Skin Exam Present: dry, warm - Routine Neurological Exam Present: alert - Routine Lymphatic Exam Lymphatic: Absent: adenopathy - Routine Psychiatric Exam Present: agitated Results - Labs CBC & Chem 7: 09/20/17 04:33 09/20/17 04:33 Microbiology Results: Microbiology 09/18/17 01:50 Sputum, Induced Gram Stain - Final 09/18/17 01:50 Sputum, Induced Sputum Culture - Preliminary 09/18/17 01:52 Sputum, Expectorated Gram Stain - Final 09/18/17 01:52 Sputum, Expectorated Sputum Culture - Final - Imaging and Cardiology Chest x-ray Additional comments: Date of Exam: 09/20/17 Indication: PNEUMONIA PROCEDURE: XR chest 1V: Findings: The examination is moderately expiratory in nature with scattered patchy somewhat nodular interstitial parenchymal opacity. No definite lobar consolidation or pleural effusion. There is prominence of the cardiac silhouette which may be accentuated by the AP portable technique. Trachea is midline. No subdiaphragmatic free air. Impression: Moderate patchy predominantly interstitial nodular Rickham opacity suggesting mild CHF. Follow-up to resolution is recommended. Assessment and Plan (1) Aspiration pneumonia Current visit: Yes Status: Acute Assessment and Plan: Assessment Pneumonia - likely aspiration Leukocytosis-(17.8) present on admission Hypernatremia-(147) present on admission Downs syndrome Hypothyroidism Atopic dermatitis Keratoconus OCD/anxiety Allergic rhinitis Insomnia Obesity urinary retention Vitamin D deficiency Plan Patient improving. Will continue meropenem IV and DC vancomycin. Sputum cx - polymicrobial, poorly specific. Hope to change to po antibiotics tomorrow. Family confirmed patient had a rash with amoxicillin in the past. Leukocytosis improving. DC IVF's as patient is drinking/eating well Wean O2 as able. Procalcitonin in am - Physician Narrative Physician: Chris Mooney MD Narrative: Date: 09/20/17 Time: 1550 I have independently evaluated and examined this patient. I reviewed the chart , the patient's history, and the [facility]/PA's documented findings as above. We discussed and formulated the assessment and plan as above with additions as below: Patient is improved. She is on 1L per NC. She cooperates with the exam. No complaints. Her [facility] continuous pillowcase cutter and brother are present. Case also was d/w her sister in [place] by phone. CM says her behavior is returning to normal. NAD. CTAB. RRR. S/NT/ND +BS. No edema Improving. DC Vanco. Check procalcitonin. CM will check with [facility] about listed Amoxicillin allergy. Could switch to Augmentin if no allergy or clinda. Titrate O2. CXR shows changes c/w mild CHF. DC IVF. Lasix iv x 1. Hospital Course Summary Disclaimer: The visit summary below is not to be considered part of the above Progress Note. Hospital Course: 09/17/17-hospital admission Admit, inpatient, under the hospitalist service, Dr. Mooney attending. Expect her stay to exceed 2 overnights given her dx of pneumonia and comorbidities which will require IV fluids, IV antibiotics, O2 and Duonebs. Meropenem and vancomycin for coverage of aspiration pneumonia. It is noted that amoxicillin is listed as an allergy in the hospital patient chart, however, [facility] information lists no known drug allergies. Respiratory panel and sputum culture are pending. Rapid influenza testing in ER was negative. DuoNeb's, guaifenesin for respiratory symptoms. Start D5 half-normal saline for rehydration and hypernatremia. She received no fluids in the ER. Speech consult to evaluate swallowing function. Caregivers wish for her to be a full code at this time. Care to return to Dr. Tri ZHU upon discharge. Case discussed with Dr. Mooney. Records reviewed from [facility]. 09/18/17 Meropenem and vancomycin for coverage of aspiration pneumonia. Sputum cx underway. (It is noted that amoxicillin is listed as an allergy in the hospital patient chart, however, [facility] information lists no known drug allergies.) Respiratory panel negative. DuoNeb's, guaifenesin for respiratory symptoms. D5 half-normal saline for rehydration and hypernatremia. Na is down. SCr up from 1.1 to 1.3. Monitor. Speech consulted. Restarting her normal puree diet. Will try voiding schedule to try to help with urine retention and incontinence. Ativan changed to iv b/c pt not taking meds and agitated. Will return to oral Ativan daily. Resume home risperidone, temazepam, gabapentin 09/19/17 Meropenem and vancomycin for coverage of aspiration pneumonia. Sputum cx - polymicrobial, poorly specific. Leukocytosis ongoing, but bandemia is improving. Continue nebs and O2. Respiratory panel negative. Repeat CXR in AM. DuoNeb's, guaifenesin for respiratory symptoms. Continue IVF, some improvement in hydration. Speech consulted. Restarting her normal puree diet. Will try voiding schedule to try to help with urine retention and incontinence. Continue bladder scan to assess urinary retention. Ativan changed to iv b/c pt not taking meds and agitated. Will return to oral Ativan daily. Resume home risperidone, temazepam, gabapentin. eye droop- will add lacrilube BID and humidify O2 to help with dry eyes. Offered stroke w/u- family declined for now. Will continue to monitor. She remains a full code for now. 09/20/17 Patient improving. Will continue meropenem IV and DC vancomycin. Family confirmed patient had a rash with amoxicillin in the past. DC IVF's as patient is drinking/eating well
[2017-09-20] MEDS ORDERED: FUROSEMIDE 20 MG/2 ML INJECTION IVP ONE (15:48)
[2017-09-20] MEDS: LORazepam 0.5 MG TABLET PO PRN ×2 (16:29→21:38)
[2017-09-20] MEDS: GUAIFENESIN 200mg/10ml ORAL LIQUID PO PRN (20:00)
[2017-09-20] MEDS: TEMAZEPAM 15 MG CAPSULE PO SCH (20:01)
[2017-09-20] MEDS: ACETAMINOPHEN 500 MG TABLET PO PRN (20:01)
[2017-09-20] MEDS: RisperiDONE 0.5 MG TABLET PO SCH (20:02)
[2017-09-20] MEDS: GABAPENTIN 300 MG CAPSULE PO SCH (20:02)
[2017-09-21] MEDS: ALBUTEROL/IPRATROPIUM 2.5mg-0.5mg/3ml NEB AEROSOL SCH ×4 (06:29→19:57)
[2017-09-21] MEDS: LEVOTHYROXINE 75 MCG TABLET PO SCH (07:35)
[2017-09-21] MEDS: MEROPENEM 1 GM in NS 50 ML IV SCH ×2 (09:18→20:59)
[2017-09-21] MEDS: LACRI-LUBE EYE OINT 3.5gm RIGHT EYE SCH ×2 (09:18→21:00)
[2017-09-21] MEDS: NS FLUSH BAG 500ml IV PRN (09:19)
[2017-09-21] MEDS: FLUTICASONE NASAL SPRAY 50mcg EA NOSTRIL SCH (09:37)
--- NOTE | 2017-09-21 11:14 | Progress Note ---
- Date 09/21/17 Subjective: Patient is seen sitting in her chair. She is resting quietly and not yelling out presently. She is able to answer yes/no questions and follows commands. She wants to go home as evidenced by nurses report of patient pointing at the door saying "home." O2 needs are improving. Cough has improved. No nausea/ vomiting. Objective Vital signs: Temperature 98.5 F 09/21/17 07:49 Pulse Rate 87 09/21/17 07:49 Respiratory Rate 20 09/21/17 10:50 Blood Pressure 115/58 09/21/17 07:49 Pulse Oximetry 95 09/21/17 10:50 Height/Weight/BMI: Height 1.37 m Weight 66.2 kg Body Mass Index 31.9 - Constitutional Present: no acute distress, well nourished, well developed - Routine HEENT Exam Head: Present: normocephalic, atraumatic - Routine Respiratory Exam Comments: has some coarse upper respiratory sounds on expiration - Routine Cardiovascular Exam Present: RRR, no murmur - Routine Abdominal Exam Present: soft, non distended, non tender - Routine Extremities Exam Present: no edema, normal capillary refill - Routine Skin Exam Present: dry, warm - Routine Neurological Exam Present: alert, altered mental status. Absent: normal speech - Routine Lymphatic Exam Lymphatic: Absent: adenopathy - Routine Psychiatric Exam Present: cooperative Results - Labs CBC & Chem 7: 09/21/17 05:24 09/21/17 05:24 Microbiology Results: Microbiology 09/18/17 01:50 Sputum, Induced Gram Stain - Final 09/18/17 01:50 Sputum, Induced Sputum Culture - Final Normal Respiratory Corrie 09/18/17 01:52 Sputum, Expectorated Gram Stain - Final 09/18/17 01:52 Sputum, Expectorated Sputum Culture - Final Assessment and Plan (1) Aspiration pneumonia Current visit: Yes Status: Acute Assessment and Plan: Assessment Pneumonia - likely aspiration Leukocytosis-(17.8) present on admission - resolved Hypernatremia-(147) present on admission - resolved Downs syndrome Hypothyroidism Atopic dermatitis [place] OCD/anxiety Allergic rhinitis Insomnia Obesity Urinary retention Vitamin D deficiency Plan Tentatively DC home today on clindamycin if she continues to do well. Phil Did need O2 briefly this am. Will continue acute treatments and reassess tomorrow. DVT Prophylaxis: SCD's Resuscitation Status: Full Code - Time spent with patient Time with patient PN: 25 minutes - Physician Narrative Physician: Chito Villarreal MD Narrative: Date: 09/21/17 Time: 1744 Have independently interviewed and examined pt. Chart reviewed. Case discussed with CM and my PA. Care plan developed with my supervision; agree with above. Doing better this afternoon. Breathing well on RA-less congestion and cough. Taking oral in. WBC back to normal. Lungs: decreased, no distress on RA. CV: regular AB: soft nt/nd Plan: Continue antibiotics. Will recheck CBC tomorrow. If white count stays normal and respiratory status stable, potentially could discharge to [facility] Hospital Course Summary Disclaimer: The visit summary below is not to be considered part of the above Progress Note. Hospital Course: 09/17/17-hospital admission Admit, inpatient, under the hospitalist service, Dr. Mooney attending. Expect her stay to exceed 2 overnights given her dx of pneumonia and comorbidities which will require IV fluids, IV antibiotics, O2 and DuoNeb. Meropenem and vancomycin for coverage of aspiration pneumonia. It is noted that amoxicillin is listed as an allergy in the hospital patient chart, however, [facility] information lists no known drug allergies. Respiratory panel and sputum culture are pending. Rapid influenza testing in ER was negative. DuoNeb's, guaifenesin for respiratory symptoms. Start D5 half-normal saline for rehydration and hypernatremia. She received no fluids in the ER. Speech consult to evaluate swallowing function. Caregivers wish for her to be a full code at this time. Care to return to Dr. Tri ZHU upon discharge. Case discussed with Dr. Mooney. Records reviewed from [facility]. 09/18/17 Meropenem and vancomycin for coverage of aspiration pneumonia. Sputum cx underway. (It is noted that amoxicillin is listed as an allergy in the hospital patient chart, however, [facility] information lists no known drug allergies.) Respiratory panel negative. DuoNeb's, guaifenesin for respiratory symptoms. D5 half-normal saline for rehydration and hypernatremia. Na is down. SCr up from 1.1 to 1.3. Monitor. Speech consulted. Restarting her normal puree diet. Will try voiding schedule to try to help with urine retention and incontinence. Ativan changed to iv b/c pt not taking meds and agitated. Will return to oral Ativan daily. Resume home risperidone, temazepam, gabapentin 09/19/17 Meropenem and vancomycin for coverage of aspiration pneumonia. Sputum cx - polymicrobial, poorly specific. Leukocytosis ongoing, but bandemia is improving. Continue nebs and O2. Respiratory panel negative. Repeat CXR in AM. DuoNeb's, guaifenesin for respiratory symptoms. Continue IVF, some improvement in hydration. Speech consulted. Restarting her normal puree diet. Will try voiding schedule to try to help with urine retention and incontinence. Continue bladder scan to assess urinary retention. Ativan changed to iv b/c pt not taking meds and agitated. Will return to oral Ativan daily. Resume home risperidone, temazepam, gabapentin. eye droop- will add lacrilube BID and humidify O2 to help with dry eyes. Offered stroke w/u- family declined for now. Will continue to monitor. She remains a full code for now. 09/20/17 Patient improving. Will continue meropenem IV and DC vancomycin. Family confirmed patient had a rash with amoxicillin in the past. DC IVF's as patient is drinking/eating well 09/21/17 Tentatively DC home today on clindamycin if she continues to do well.
[2017-09-21] MEDS: ACETAMINOPHEN 500 MG TABLET PO PRN ×2 (15:42→21:01)
[2017-09-21] MEDS: LORazepam 0.5 MG TABLET PO PRN (15:42)
[2017-09-21] MEDS: TEMAZEPAM 15 MG CAPSULE PO SCH (21:01)
[2017-09-21] MEDS: RisperiDONE 0.5 MG TABLET PO SCH (21:15)
[2017-09-21] MEDS: GABAPENTIN 300 MG CAPSULE PO SCH (21:15)
[2017-09-22] MEDS: LORazepam 0.5 MG TABLET PO PRN ×2 (01:40→20:43)
[2017-09-22] MEDS: LEVOTHYROXINE 75 MCG TABLET PO SCH (08:04)
[2017-09-22] MEDS: ALBUTEROL/IPRATROPIUM 2.5mg-0.5mg/3ml NEB AEROSOL SCH ×5 (08:40→20:38)
[2017-09-22] MEDS: MEROPENEM 1 GM in NS 50 ML IV SCH ×2 (08:53→20:50)
[2017-09-22] MEDS: LACRI-LUBE EYE OINT 3.5gm RIGHT EYE SCH ×2 (08:53→20:45)
[2017-09-22] MEDS: FLUTICASONE NASAL SPRAY 50mcg EA NOSTRIL SCH (08:53)
--- NOTE | 2017-09-22 13:07 | Progress Note ---
- Date 09/22/17 Subjective: F/U: Pneumonia, leukocytosis Resting in bed. Breathing comfortably. O2 needs present. RT did evaluate patient -with ambulation does need O2 at 3L to maintain saturations, 2L at rest. RT wonders about possible DANNA as well. Has been taking 1005 of meals. WBC normal. Not having temp elevations. Objective Vital signs: Temperature 99.1 F 09/22/17 08:00 Pulse Rate 94 09/22/17 12:19 Respiratory Rate 24 09/22/17 08:41 Blood Pressure 94/52 09/22/17 08:00 Pulse Oximetry 91 09/22/17 12:19 Height/Weight/BMI: Height 1.37 m Weight 67.2 kg Body Mass Index 31.9 - Constitutional Present: no acute distress, well nourished, well developed, obese - Routine HEENT Exam Head: Present: normocephalic, atraumatic Eye: Present: EOMI, PERRL ENT: Present: mucous membranes moist - Routine Respiratory Exam Present: decreased breath sounds. Absent: rales, respiratory distress, rhonchi , stridor, wheezes, crackles - Routine Cardiovascular Exam Present: RRR, no murmur - Routine Abdominal Exam Present: soft, normoactive bowel sounds, non distended, non tender - Routine Extremities Exam Present: edema (+1 BLE ). Absent: cyanosis, clubbing - Routine Musculoskeletal Exam Musculoskeletal: Present: no clubbing or cyanosis - Routine Skin Exam Present: dry, warm - Routine Neurological Exam Present: moving all extremities, vision grossly intact, hearing grossly intact. Absent: altered mental status Results - Labs CBC & Chem 7: 09/22/17 05:13 09/21/17 05:24 Microbiology Results: Microbiology 09/18/17 01:50 Sputum, Induced Gram Stain - Final 09/18/17 01:50 Sputum, Induced Sputum Culture - Final Normal Respiratory Corrie 09/18/17 01:52 Sputum, Expectorated Gram Stain - Final 09/18/17 01:52 Sputum, Expectorated Sputum Culture - Final Assessment and Plan (1) Aspiration pneumonia Current visit: Yes Status: Acute Assessment and Plan: Assessment Pneumonia - likely aspiration Leukocytosis-(17.8) present on admission - resolved Hypernatremia-(147) present on admission - resolved Obesity hypoventilation syndrome Downs syndrome Dysphagia Hypothyroidism Atopic dermatitis [place] OCD/anxiety Allergic rhinitis Insomnia Obesity Urinary retention Vitamin D deficiency Plan WBC normalized. Oral drive stable. Still requiring O2. RT did evaluate-needing 3L with activities and 2L at rest. Suspect secondary to obesity hypoventilation syndrome. Will continue with clindamycin 300mg TID for 1 week for pulmonary coverage. Follow up with Dr Jose in 1 week. Could recheck CXR in 1-2 weeks to document resolution of infiltrate. See orders for details. Case discussed with CM. Time spent with patient care and discharge greater than 30 minutes. DVT Prophylaxis: SCD's Resuscitation Status: Full Code - Physician Narrative Physician: Chito Villarreal MD Narrative: Date: 09/22/17 Time: 1304 Hospital Course Summary Disclaimer: The visit summary below is not to be considered part of the above Progress Note. Hospital Course: 09/17/17-Hospital admission Admit, inpatient, under the hospitalist service, Dr. Mooney attending. Expect her stay to exceed 2 overnights given her dx of pneumonia and comorbidities which will require IV fluids, IV antibiotics, O2 and DuoNeb. Meropenem and vancomycin for coverage of aspiration pneumonia. It is noted that amoxicillin is listed as an allergy in the hospital patient chart, however, [facility] information lists no known drug allergies. Respiratory panel and sputum culture are pending. Rapid influenza testing in ER was negative. DuoNeb's, guaifenesin for respiratory symptoms. Start D5 half-normal saline for rehydration and hypernatremia. She received no fluids in the ER. Speech consult to evaluate swallowing function. Caregivers wish for her to be a full code at this time. Care to return to Dr. Tri Jose upon discharge. Case discussed with Dr. Mooney. Records reviewed from [facility]. 09/18/17 Meropenem and vancomycin for coverage of aspiration pneumonia. Sputum culture underway. (It is noted that amoxicillin is listed as an allergy in the hospital patient chart, however, [facility] information lists no known drug allergies.) Respiratory panel negative. DuoNeb's, guaifenesin for respiratory symptoms. D5 half-normal saline for rehydration and hypernatremia. Sodium is down to 146. Creatinine up from 1.1 to 1.3. Monitor. Speech consulted. Restarting her normal puree diet. Will try voiding schedule to try to help with urine retention and incontinence. Ativan changed to iv b/c pt not taking meds and agitated. Will return to oral Ativan daily. Resume home risperidone, temazepam, gabapentin. 09/19/17 Meropenem and vancomycin for coverage of aspiration pneumonia. Sputum culture - polymicrobial, poorly specific. Leukocytosis ongoing, but bandemia is improving. Continue nebs and O2. Respiratory panel negative. Repeat CXR in AM. DuoNeb's, guaifenesin for respiratory symptoms. Continue IVF, some improvement in hydration. Sodium normalized. Speech consulted. Restarting her normal puree diet. Will try voiding schedule to try to help with urine retention and incontinence. Continue bladder scan to assess urinary retention. Ativan changed to IV b/c pt not taking meds and agitated. Will return to oral Ativan daily. Resume home risperidone, temazepam, gabapentin. Eye droop- will add lacrilube BID and humidify O2 to help with dry eyes. Offered stroke w/u- family declined for now. Will continue to monitor. She remains a full code for now. 09/20/17 Patient improving. Will continue meropenem IV and DC vancomycin. Family confirmed patient had a rash with amoxicillin in the past. DC IVF's as patient is drinking/eating well 09/21/17 WBC improving. O2 needs decreasing, variable. Oral drive improved. Anticipate discharge in near future if continues to make gains. 09/22/17 Discharge WBC normalized. Oral drive stable. Breathing comfortably, no respiratory distress. Still requiring O2. RT did evaluate-needing 3L with activities and 2L at rest. Suspect secondary to obesity hypoventilation syndrome. Will continue with clindamycin 300mg TID for 1 week for pulmonary coverage. Follow up with Dr Jose in 1 week. Could recheck CXR in 1-2 weeks to document resolution of infiltrate. See orders for details.
[2017-09-22] MEDS: RisperiDONE 0.5 MG TABLET PO SCH (20:43)
[2017-09-22] MEDS: GABAPENTIN 300 MG CAPSULE PO SCH (20:44)
[2017-09-22] MEDS: TEMAZEPAM 15 MG CAPSULE PO SCH (20:48)
[2017-09-22] MEDS: ACETAMINOPHEN 500 MG TABLET PO PRN (22:25)
[2017-09-22] MEDS ORDERED: HALOPERIDOL 5 MG TABLET PO ONE (22:55)
[2017-09-23] MEDS: LEVOTHYROXINE 75 MCG TABLET PO SCH (05:35)
[2017-09-23] MEDS: ALBUTEROL/IPRATROPIUM 2.5mg-0.5mg/3ml NEB AEROSOL SCH ×4 (06:47→19:01)
[2017-09-23] MEDS: MEROPENEM 1 GM in NS 50 ML IV SCH ×2 (08:01→20:33)
[2017-09-23] MEDS: SALINE FLUSH 10ml SYRINGE IVF PRN ×2 (08:02→20:41)
--- NOTE | 2017-09-23 08:13 | Wound Care Progress Note ---
Wound Center Progress Note: Pt seen for wound consultation. Seen with Lisa CARDONA. Spoke with pt's nurse; pt is having no skin issues at this time.
--- NOTE | 2017-09-23 08:33 | XRay Report ---
INDICATION: f-u abnl cxr PROCEDURE: CHEST 2-VIEWS UPRIGHT (PA & LAT) Encounter: Initial COMPARISON: September 20, 2017 FINDINGS: Aeration of the lungs has improved with residual bilateral airspace consolidation. No pneumothorax or obvious pleural effusion. Heart size and mediastinal contours are stable. Pulmonary vascularity is indistinct. Impression: Improving edema or pneumonia. .
[2017-09-23] MEDS: FLUTICASONE NASAL SPRAY 50mcg EA NOSTRIL SCH (09:58)
[2017-09-23] MEDS: LACRI-LUBE EYE OINT 3.5gm RIGHT EYE SCH ×2 (09:58→20:33)
--- NOTE | 2017-09-23 11:33 | Progress Note ---
- Date 09/23/17 Subjective: Patient is seen lying in her bed. She does not communicate other than with yelling/groaning if she does not like something. She was resting initially, then woke when the nurse moved her bed to weigh her. She is been up to walk several times today. She usually just coughs after she has been yelling. She is still requiring some oxygen with exertion. She has been eating and drinking well. She's had several formed bowel movements. Objective Vital signs: Temperature 98.2 F 09/22/17 23:58 Pulse Rate 77 09/22/17 23:58 Respiratory Rate 20 09/23/17 10:12 Blood Pressure 100/51 09/22/17 23:58 Pulse Oximetry 96 09/23/17 10:12 Height/Weight/BMI: Height 1.37 m Weight 67.2 kg Body Mass Index 31.9 - Constitutional Present: no acute distress, well nourished, well developed - Routine HEENT Exam Head: Present: normocephalic, atraumatic Comments: Some scabbing and dryness to the lips. - Routine Respiratory Exam Present: CTA bilaterally (auscultated anterior and laterally only). Absent: wheezes - Routine Cardiovascular Exam Present: RRR, no murmur - Routine Abdominal Exam Present: soft, non distended, non tender - Routine Extremities Exam Present: no edema, normal capillary refill - Routine Skin Exam Present: dry, warm - Routine Neurological Exam Present: alert, altered mental status. Absent: normal speech - Routine Lymphatic Exam Lymphatic: Absent: adenopathy - Routine Psychiatric Exam Absent: normal affect Results - Labs CBC & Chem 7: 09/22/17 05:13 09/21/17 05:24 Microbiology Results: Microbiology 09/18/17 01:50 Sputum, Induced Gram Stain - Final 09/18/17 01:50 Sputum, Induced Sputum Culture - Final Normal Respiratory Corrie 09/18/17 01:52 Sputum, Expectorated Gram Stain - Final 09/18/17 01:52 Sputum, Expectorated Sputum Culture - Final - Imaging and Cardiology Chest x-ray Additional comments: Date of Exam: 09/23/17 INDICATION: f-u abnl cxr PROCEDURE: CHEST 2-VIEWS UPRIGHT (PA & LAT) FINDINGS: Aeration of the lungs has improved with residual bilateral airspace consolidation. No pneumothorax or obvious pleural effusion. Heart size and mediastinal contours are stable. Pulmonary vascularity is indistinct. Impression: Improving edema or pneumonia. Assessment and Plan (1) Aspiration pneumonia Current visit: Yes Status: Acute Assessment and Plan: Assessment Pneumonia - likely aspiration -improving Leukocytosis-(17.8) present on admission - resolved Hypernatremia-(147) present on admission - resolved Obesity hypoventilation syndrome Downs syndrome Dysphagia Hypothyroidism Atopic dermatitis [place] OCD/anxiety Allergic rhinitis Insomnia Obesity Urinary retention Vitamin D deficiency Plan Repeat CXR showing improvement. O2 needs are decreasing. Lasix 20mg IV x 1 given for pulmonary congestion. Phil CXR showing improvement. With continued O2 needs will continue with treatments inpatient. Hope to be able to wean off O2. Resuscitation Status: Full Code - Time spent with patient Time with patient PN: 25 minutes - Physician Narrative Physician: Chito Villarreal MD Narrative: Date: 09/23/17 Time: 1510 Have independently interviewed and examined patient. Chart reviewed. Case discussed with CM and my PA. Care plan developed with my supervision; agree with above. Resting in bed-yelling out at times. Nursing reports she has been up and walked today, eating well, had 3 soft but formed stools. Needing O2, but not in respiratory distress. Lungs: decreased, good air movement. CV: regular AB: soft nt/nd BS present Plan: Continue with antibiotic treatment. Lasix IV as to help mobilize fluid. CXR showing improvement. Encourage continue activities. Will recheck lab tomorrow. Hospital Course Summary Disclaimer: The visit summary below is not to be considered part of the above Progress Note. Hospital Course: 09/17/17-Hospital admission Admit, inpatient, under the hospitalist service, Dr. Mooney attending. Expect her stay to exceed 2 overnights given her dx of pneumonia and comorbidities which will require IV fluids, IV antibiotics, O2 and DuoNeb. Meropenem and vancomycin for coverage of aspiration pneumonia. It is noted that amoxicillin is listed as an allergy in the hospital patient chart, however, [facility] information lists no known drug allergies. Respiratory panel and sputum culture are pending. Rapid influenza testing in ER was negative. DuoNeb's, guaifenesin for respiratory symptoms. Start D5 half-normal saline for rehydration and hypernatremia. She received no fluids in the ER. Speech consult to evaluate swallowing function. Caregivers wish for her to be a full code at this time. Care to return to Dr. Tri Jose upon discharge. Case discussed with Dr. Mooney. Records reviewed from [facility]. 09/18/17 Meropenem and vancomycin for coverage of aspiration pneumonia. Sputum culture underway. (It is noted that amoxicillin is listed as an allergy in the hospital patient chart, however, [facility] information lists no known drug allergies.) Respiratory panel negative. DuoNeb's, guaifenesin for respiratory symptoms. D5 half-normal saline for rehydration and hypernatremia. Sodium is down to 146. Creatinine up from 1.1 to 1.3. Monitor. Speech consulted. Restarting her normal puree diet. Will try voiding schedule to try to help with urine retention and incontinence. Ativan changed to iv b/c pt not taking meds and agitated. Will return to oral Ativan daily. Resume home risperidone, temazepam, gabapentin. 09/19/17 Meropenem and vancomycin for coverage of aspiration pneumonia. Sputum culture - polymicrobial, poorly specific. Leukocytosis ongoing, but bandemia is improving. Continue nebs and O2. Respiratory panel negative. Repeat CXR in AM. DuoNeb's, guaifenesin for respiratory symptoms. Continue IVF, some improvement in hydration. Sodium normalized. Speech consulted. Restarting her normal puree diet. Will try voiding schedule to try to help with urine retention and incontinence. Continue bladder scan to assess urinary retention. Ativan changed to IV b/c pt not taking meds and agitated. Will return to oral Ativan daily. Resume home risperidone, temazepam, gabapentin. Eye droop- will add lacrilube BID and humidify O2 to help with dry eyes. Offered stroke w/u- family declined for now. Will continue to monitor. She remains a full code for now. 09/20/17 Patient improving. Will continue meropenem IV and DC vancomycin. Family confirmed patient had a rash with amoxicillin in the past. DC IVF's as patient is drinking/eating well 09/21/17 WBC improving. O2 needs decreasing, variable. Oral drive improved. Anticipate discharge in near future if continues to make gains. 09/22/[address] stable. Breathing comfortably, no respiratory distress. Still requiring O2. RT did evaluate-needing 3L with activities and 2L at rest. Suspect secondary to obesity hypoventilation syndrome. Will continue with supportive care and treatment. 09/23/17 Repeat CXR showing improvement. O2 needs are decreasing. Lasix 20mg IV x 1 given for pulmonary congestion. Continue ambulation efforts.
[2017-09-23] MEDS ORDERED: FUROSEMIDE 20 MG/2 ML INJECTION IVP ONE (14:29)
[2017-09-23] MEDS: RisperiDONE 0.5 MG TABLET PO SCH (20:34)
[2017-09-23] MEDS: TEMAZEPAM 15 MG CAPSULE PO SCH (20:36)
[2017-09-23] MEDS: GABAPENTIN 300 MG CAPSULE PO SCH (20:36)
[2017-09-24] MEDS: LEVOTHYROXINE 75 MCG TABLET PO SCH (06:34)
[2017-09-24] MEDS: ALBUTEROL/IPRATROPIUM 2.5mg-0.5mg/3ml NEB AEROSOL SCH ×4 (06:41→21:39)
[2017-09-24] MEDS: MEROPENEM 1 GM in NS 50 ML IV SCH ×2 (09:30→22:30)
[2017-09-24] MEDS: FLUTICASONE NASAL SPRAY 50mcg EA NOSTRIL SCH (09:31)
[2017-09-24] MEDS: LACRI-LUBE EYE OINT 3.5gm RIGHT EYE SCH ×2 (09:31→22:39)
[2017-09-24] MEDS: SALINE FLUSH 10ml SYRINGE IVF PRN (09:32)
--- NOTE | 2017-09-24 11:11 | Progress Note ---
- Date 09/24/17 Subjective: Xin is seen today in follow up for her acute hypoxia. She is seen while sitting in her chair, eating breakfast. Initially she reports well to questions but later answers in grunts. She denies any complaints including no chest pain, shortness of breath, abdominal pain, nausea or vomiting. She continues to require 2L NC of oxygen to maintain SAO2 but is in no apparent distress and is breathing easily on exam. Her chart and nursing notes were reviewed extensively. Repeat labs today were stable. Her weight is slowly trending down, though she is still up from time of admission. Urinary output is stable and bowels are moving. Case management continues to assist with discharge planning back to [facility]. Objective Vital signs: Temperature 96.6 F L 09/24/17 07:00 Pulse Rate 56 L 09/24/17 07:00 Respiratory Rate 18 09/24/17 06:41 Blood Pressure 90/51 09/24/17 07:00 Pulse Oximetry 91 09/24/17 07:00 Height/Weight/BMI: Height 4 ft 6 in Weight 147 lb 0.773 oz Body Mass Index 31.9 Comments: sitting in her chair, eating all of her breakfast unassisted. - Constitutional Present: no acute distress, well nourished, well developed, morbidly obese, cooperative - Routine HEENT Exam Head: Present: normocephalic, atraumatic Eye: Present: PERRL. Absent: conjunctival icterus ENT: Present: mucous membranes moist - Routine Respiratory Exam Present: decreased breath sounds, crackles (bilateral bases). Absent: respiratory distress Comments: breathing easily on 2L NC; no cough or congestion; no conversational dyspnea. - Routine Cardiovascular Exam Present: RRR, S1, S2 - Routine Abdominal Exam Present: soft, normoactive bowel sounds, non distended, non tender. Absent: distended, rebound, guarding - Routine Extremities Exam Present: edema (trace bilaterally), non tender, full ROM, pulses intact - Routine Back/Spine/Pelvis Exam Back/Spine: Present: full ROM. Absent: vertebral tenderness - Routine Musculoskeletal Exam Musculoskeletal: Present: moving extremities well - Routine Skin Exam Present: dry, warm. Absent: jaundice Comments: afebrile - Routine Neurological Exam Present: alert, moving all extremities - Routine Lymphatic Exam Lymphatic: Absent: lymphedema - Routine Psychiatric Exam Present: cooperative Results - Labs CBC & Chem 7: 02/09/18 04:49 09/24/17 04:49 Microbiology Results: Microbiology 09/18/17 01:50 Sputum, Induced Gram Stain - Final 09/18/17 01:50 Sputum, Induced Sputum Culture - Final Normal Respiratory Corrie 09/18/17 01:52 Sputum, Expectorated Gram Stain - Final 09/18/17 01:52 Sputum, Expectorated Sputum Culture - Final Assessment and Plan (1) Aspiration pneumonia Current visit: Yes Status: Acute Assessment and Plan: Assessment Pneumonia - likely aspiration -improving Leukocytosis-(17.8) present on admission - resolved Hypernatremia-(147) present on admission - resolved Obesity hypoventilation syndrome Downs syndrome Dysphagia Hypothyroidism Atopic dermatitis [place] OCD/anxiety Allergic rhinitis Insomnia Obesity Urinary retention Vitamin D deficiency Plan - 09/24/17. Xin continues to make slow gains. Breathing is stable on 2L NC. CXR on 09/23 appeared slightly improved. Case management continues to work on discharge planning back to [facility]. Concern that [facility] is unable to get medication on the weekend which may delay discharge until next week. Continue supplemental oxygen, weaning as able. Crackles noted to bilateral bases on exam. Will given Lasix 20mg IV x 1 dose now and continue to monitor respiratory status. Continue respiratory care including DuoNeb treatments. Blood sugars remain stable. Will recheck labs in AM to monitor blood counts, electrolytes and renal function. Anticipate discharge in near future. DVT Prophylaxis: SCD's Resuscitation Status: Full Code - Time spent with patient Time with patient PN: 25 minutes - Physician Narrative Physician: Chito Villarreal MD Narrative: Date: 09/24/17 Time: 1854 Have independently interviewed and examined pt. Chart reviewed. Case discussed with CM and my PA. Care plan developed with my supervision; agree with above. Sitting up in chair this evening. Does cry out often. Breathing comfortably with O2. Eating well. Lungs: decreased, no distress CV: regular AB: soft nt MSE: awake alert Plan: Did reevaluate her O2 needs. Needing less O2 at rest (1L), but took 6L to maintain saturations with ambulation (3L the other day). Lasix given to help motivate fluid. Will continue with hospitalization and antibiotic treatment. With increased O2 demands with ambulation, do not feel patient ready for discharge. Hospital Course Summary Disclaimer: The visit summary below is not to be considered part of the above Progress Note. Hospital Course: 09/17/17-Hospital admission Admit, inpatient, under the hospitalist service, Dr. Mooney attending. Expect her stay to exceed 2 overnights given her dx of pneumonia and comorbidities which will require IV fluids, IV antibiotics, O2 and DuoNeb. Meropenem and vancomycin for coverage of aspiration pneumonia. It is noted that amoxicillin is listed as an allergy in the hospital patient chart, however, [facility] information lists no known drug allergies. Respiratory panel and sputum culture are pending. Rapid influenza testing in ER was negative. DuoNeb's, guaifenesin for respiratory symptoms. Start D5 half-normal saline for rehydration and hypernatremia. She received no fluids in the ER. Speech consult to evaluate swallowing function. Caregivers wish for her to be a full code at this time. Care to return to Dr. Tri Jose upon discharge. Case discussed with Dr. Mooney. Records reviewed from [facility]. 09/18/17 Meropenem and vancomycin for coverage of aspiration pneumonia. Sputum culture underway. (It is noted that amoxicillin is listed as an allergy in the hospital patient chart, however, [facility] information lists no known drug allergies.) Respiratory panel negative. DuoNeb's, guaifenesin for respiratory symptoms. D5 half-normal saline for rehydration and hypernatremia. Sodium is down to 146. Creatinine up from 1.1 to 1.3. Monitor. Speech consulted. Restarting her normal puree diet. Will try voiding schedule to try to help with urine retention and incontinence. Ativan changed to iv b/c pt not taking meds and agitated. Will return to oral Ativan daily. Resume home risperidone, temazepam, gabapentin. 09/19/17 Meropenem and vancomycin for coverage of aspiration pneumonia. Sputum culture - polymicrobial, poorly specific. Leukocytosis ongoing, but bandemia is improving. Continue nebs and O2. Respiratory panel negative. Repeat CXR in AM. DuoNeb's, guaifenesin for respiratory symptoms. Continue IVF, some improvement in hydration. Sodium normalized. Speech consulted. Restarting her normal puree diet. Will try voiding schedule to try to help with urine retention and incontinence. Continue bladder scan to assess urinary retention. Ativan changed to IV b/c pt not taking meds and agitated. Will return to oral Ativan daily. Resume home risperidone, temazepam, gabapentin. Eye droop- will add lacrilube BID and humidify O2 to help with dry eyes. Offered stroke w/u- family declined for now. Will continue to monitor. She remains a full code for now. 09/20/17 Patient improving. Will continue meropenem IV and DC vancomycin. Family confirmed patient had a rash with amoxicillin in the past. DC IVF's as patient is drinking/eating well 09/21/17 WBC improving. O2 needs decreasing, variable. Oral drive improved. Anticipate discharge in near future if continues to make gains. 09/22/[address] stable. Breathing comfortably, no respiratory distress. Still requiring O2. RT did evaluate-needing 3L with activities and 2L at rest. Suspect secondary to obesity hypoventilation syndrome. Will continue with supportive care and treatment. 09/23/17 Repeat CXR showing improvement. O2 needs are decreasing. Lasix 20mg IV x 1 given for pulmonary congestion. Continue ambulation efforts. Plan - 09/24/17. Xin continues to make slow gains. Breathing is stable on 2L NC. CXR on 09/23 appeared slightly improved. Case management continues to work on discharge planning back to [facility]. Concern that [facility] is unable to get medication on the weekend which may delay discharge until next week. Continue supplemental oxygen, weaning as able. Crackles noted to bilateral bases on exam. Will given Lasix 20mg IV x 1 dose now and continue to monitor respiratory status. Continue respiratory care including DuoNeb treatments. Blood sugars remain stable. Will recheck labs in AM to monitor blood counts, electrolytes and renal function. Anticipate discharge in near future.
[2017-09-24] MEDS ORDERED: FUROSEMIDE 20 MG/2 ML INJECTION IVP ONE (11:15)
[2017-09-24] MEDS: GABAPENTIN 300 MG CAPSULE PO SCH (22:38)
[2017-09-24] MEDS: TEMAZEPAM 15 MG CAPSULE PO SCH (22:38)
[2017-09-24] MEDS: RisperiDONE 0.5 MG TABLET PO SCH (22:38)
[2017-09-25] MEDS: NS FLUSH BAG 500ml IV PRN (00:38)
[2017-09-25] MEDS: LORazepam 0.5 MG TABLET PO PRN (00:38)
[2017-09-25] MEDS: LEVOTHYROXINE 75 MCG TABLET PO SCH (06:04)
[2017-09-25] MEDS: ALBUTEROL/IPRATROPIUM 2.5mg-0.5mg/3ml NEB AEROSOL SCH ×4 (07:26→21:01)
[2017-09-25] MEDS: FUROSEMIDE 20 MG/2 ML INJECTION IVP SCH (09:30)
[2017-09-25] MEDS: MEROPENEM 1 GM in NS 50 ML IV SCH ×2 (09:31→20:24)
[2017-09-25] MEDS: FLUTICASONE NASAL SPRAY 50mcg EA NOSTRIL SCH (09:39)
[2017-09-25] MEDS: LACRI-LUBE EYE OINT 3.5gm RIGHT EYE SCH ×2 (09:40→20:26)
--- NOTE | 2017-09-25 10:23 | Progress Note ---
- Date 09/25/17 Subjective: F/U: Pneumonia with acute hypoxia. Xin is seen while resting in bed. She awakens easily with soft touch and voice stimuli but quickly falls back to sleep. She is noted to have pulled her oxygen tubing out of her nose which was ultimately replaced with some resistance from her. Nursing notes and her medical record were reviewed extensively. She continues to have episodes of behaviors but has been cooperating with cares overall. Nursing notes that she ambulated 6 times yesterday requiring a 2 assist but appeared fairly steady on her feet. Her oxygen saturations did drop with ambulation to 83% on room air and improved with 2.5L oxygen and rest. Her appetite is stable and bowels are moving. Objective Vital signs: Temperature 98.1 F 09/25/17 00:00 Pulse Rate 69 09/25/17 00:00 Respiratory Rate 18 09/25/17 07:28 Blood Pressure 133/69 09/25/17 00:00 Pulse Oximetry 93 09/25/17 07:28 Height/Weight/BMI: Height 4 ft 6 in Weight 147 lb 0.773 oz Body Mass Index 31.9 Comments: Patient sleeping on exam and awakens easily with soft touch and voice stimuli but quickly falls back to sleep. Nasal canula displaced from nose initially and replaced during exam. - Constitutional Present: no acute distress, well nourished, well developed, cooperative - Routine HEENT Exam Head: Present: normocephalic, atraumatic ENT: Present: mucous membranes dry - Routine Respiratory Exam Present: decreased breath sounds. Absent: respiratory distress Comments: limited exam as patient was sleeping. - Routine Cardiovascular Exam Present: RRR, S1, S2 - Routine Abdominal Exam Present: soft, normoactive bowel sounds, non distended, non tender - Routine Extremities Exam Present: edema (trace bilaterally), non tender, pulses intact - Routine Musculoskeletal Exam Musculoskeletal: Present: moving extremities well (moves on exam during sleep) - Routine Skin Exam Present: dry, warm. Absent: jaundice Comments: afebrile. - Routine Neurological Exam Present: moving all extremities sleeping - Routine Lymphatic Exam Lymphatic: Absent: lymphedema - Routine Psychiatric Exam Present: cooperative Comments: sleeping Results - Labs CBC & Chem 7: 09/25/17 04:18 09/25/17 04:18 Microbiology Results: Microbiology 09/18/17 01:50 Sputum, Induced Gram Stain - Final 09/18/17 01:50 Sputum, Induced Sputum Culture - Final Normal Respiratory Corrie 09/18/17 01:52 Sputum, Expectorated Gram Stain - Final 09/18/17 01:52 Sputum, Expectorated Sputum Culture - Final Assessment and Plan (1) Aspiration pneumonia Current visit: Yes Status: Acute Assessment and Plan: Assessment Pneumonia - likely aspiration -improving Leukocytosis-(17.8) present on admission - resolved Hypernatremia-(147) present on admission - resolved Obesity hypoventilation syndrome Downs syndrome Dysphagia Hypothyroidism Atopic dermatitis [place] OCD/anxiety Allergic rhinitis Insomnia Obesity Urinary retention Vitamin D deficiency Plan - 09/25/17. Xin continues to require supplemental oxygen. Oxygen demands at rest continues to be 1-2L and increase significantly with ambulation and exertion. Respiratory therapy noted that she has poor exercise endurance with oximetry decreasing to 84% on room air with exertion and required 6L to maintain >90% with exercise. Daily Lasix 20mg IV initiated to encourage fluid motivation and assist with respiratory function. Monitor renal function and urinary output closely. Continue Meropenem 1g Q12H for antimicrobial coverage of pulmonary pathogens - initiated 09/17/17; day 8. Continue supplemental oxygen, weaning as able. Continue respiratory care including DuoNeb treatments. Blood sugars remain stable. Will recheck labs in AM to monitor blood counts, electrolytes and renal function. Case management continues to work on discharge planning back to [facility] when the patient is able. DVT Prophylaxis: SCD's Resuscitation Status: Full Code - Time spent with patient Time with patient PN: 35 minutes - Physician Narrative Physician: Chito Villarreal MD Narrative: Date: 09/25/17 Time: 1410 Have independently interviewed and examined pt. Chart reviewed. Case discussed with nursing and my PA. Care plan developed with my supervision; agree with above. Doing fair. Was up at nurses station all morning in wheel chair, back to room now. Restless and will cry out. Breathing comfortable. Nursing reports some difficulty with patient wearing O2 today. Appetite fair-nursing noted that eats well when family present. Lungs: decreased, no distress CV: regular MSE: awake alert Plan: Continue antibiotics. Continue with Lasix to decrease volume. Encourage activities to help pulmonary toilet and decrease boredom for patient. Unable to discharge to [facility] on weekend-hope to have respiratory status improved by . Will check CXR on Wednesday for follow up. Hospital Course Summary Disclaimer: The visit summary below is not to be considered part of the above Progress Note. Hospital Course: 09/17/17-Hospital admission Admit, inpatient, under the hospitalist service, Dr. Mooney attending. Expect her stay to exceed 2 overnights given her dx of pneumonia and comorbidities which will require IV fluids, IV antibiotics, O2 and DuoNeb. Meropenem and vancomycin for coverage of aspiration pneumonia. It is noted that amoxicillin is listed as an allergy in the hospital patient chart, however, [facility] information lists no known drug allergies. Respiratory panel and sputum culture are pending. Rapid influenza testing in ER was negative. DuoNeb's, guaifenesin for respiratory symptoms. Start D5 half-normal saline for rehydration and hypernatremia. She received no fluids in the ER. Speech consult to evaluate swallowing function. Caregivers wish for her to be a full code at this time. Care to return to Dr. Tri Joes upon discharge. Case discussed with Dr. Mooney. Records reviewed from [facility]. 09/18/17 Meropenem and vancomycin for coverage of aspiration pneumonia. Sputum culture underway. (It is noted that amoxicillin is listed as an allergy in the hospital patient chart, however, [facility] information lists no known drug allergies.) Respiratory panel negative. DuoNeb's, guaifenesin for respiratory symptoms. D5 half-normal saline for rehydration and hypernatremia. Sodium is down to 146. Creatinine up from 1.1 to 1.3. Monitor. Speech consulted. Restarting her normal puree diet. Will try voiding schedule to try to help with urine retention and incontinence. Ativan changed to iv b/c pt not taking meds and agitated. Will return to oral Ativan daily. Resume home risperidone, temazepam, gabapentin. 09/19/17 Meropenem and vancomycin for coverage of aspiration pneumonia. Sputum culture - polymicrobial, poorly specific. Leukocytosis ongoing, but bandemia is improving. Continue nebs and O2. Respiratory panel negative. Repeat CXR in AM. DuoNeb's, guaifenesin for respiratory symptoms. Continue IVF, some improvement in hydration. Sodium normalized. Speech consulted. Restarting her normal puree diet. Will try voiding schedule to try to help with urine retention and incontinence. Continue bladder scan to assess urinary retention. Ativan changed to IV b/c pt not taking meds and agitated. Will return to oral Ativan daily. Resume home risperidone, temazepam, gabapentin. Eye droop- will add lacrilube BID and humidify O2 to help with dry eyes. Offered stroke w/u- family declined for now. Will continue to monitor. She remains a full code for now. 09/20/17 Patient improving. Will continue meropenem IV and DC vancomycin. Family confirmed patient had a rash with amoxicillin in the past. DC IVF's as patient is drinking/eating well 09/21/17 WBC improving. O2 needs decreasing, variable. Oral drive improved. Anticipate discharge in near future if continues to make gains. 09/22/[address] stable. Breathing comfortably, no respiratory distress. Still requiring O2. RT did evaluate-needing 3L with activities and 2L at rest. Suspect secondary to obesity hypoventilation syndrome. Will continue with supportive care and treatment. 09/23/17 Repeat CXR showing improvement. O2 needs are decreasing. Lasix 20mg IV x 1 given for pulmonary congestion. Continue ambulation efforts. 09/24/17. Xin continues to make slow gains. Breathing is stable on 2L NC. CXR on 09/23 appeared slightly improved. Case management continues to work on discharge planning back to [facility]. Concern that [facility] is unable to get medication on the weekend which may delay discharge until next week. Continue supplemental oxygen, weaning as able. Crackles noted to bilateral bases on exam. Will given Lasix 20mg IV x 1 dose now and continue to monitor respiratory status. Continue respiratory care including DuoNeb treatments. Blood sugars remain stable. Will recheck labs in AM to monitor blood counts, electrolytes and renal function. Anticipate discharge in near future. 09/25/17. Xin continues to require supplemental oxygen. Oxygen demands at rest continues to be 1-2L and increase significantly with ambulation and exertion. Respiratory therapy noted that she has poor exercise endurance with oximetry decreasing to 84% on room air with exertion and required 6L to maintain >90% with exercise. Daily Lasix 20mg IV initiated to encourage fluid motivation and assist with respiratory function. Monitor renal function and urinary output closely. Continue Meropenem 1g Q12H for antimicrobial coverage of pulmonary pathogens - initiated 09/17/17; day 8. Continue supplemental oxygen, weaning as able. Continue respiratory care including DuoNeb treatments.
[2017-09-25] MEDS: TEMAZEPAM 15 MG CAPSULE PO SCH (20:25)
[2017-09-25] MEDS: GABAPENTIN 300 MG CAPSULE PO SCH (20:26)
[2017-09-25] MEDS: RisperiDONE 0.5 MG TABLET PO SCH (20:26)
[2017-09-25] MEDS: VICKS VAPORUB TP SCH (20:27)
[2017-09-26] MEDS: LEVOTHYROXINE 75 MCG TABLET PO SCH (06:21)
[2017-09-26] MEDS: ALBUTEROL/IPRATROPIUM 2.5mg-0.5mg/3ml NEB AEROSOL SCH ×4 (07:13→17:50)
[2017-09-26] MEDS: MEROPENEM 1 GM in NS 50 ML IV SCH ×3 (09:56→21:00)
[2017-09-26] MEDS: FUROSEMIDE 20 MG/2 ML INJECTION IVP SCH (10:48)
[2017-09-26] MEDS: LACRI-LUBE EYE OINT 3.5gm RIGHT EYE SCH ×2 (10:51→20:04)
[2017-09-26] MEDS: FLUTICASONE NASAL SPRAY 50mcg EA NOSTRIL SCH (10:51)
[2017-09-26] MEDS: LORATADINE 10 MG TABLET PO SCH (10:52)
[2017-09-26] MEDS: MONTELUKAST 10 MG TABLET PO SCH (10:54)
[2017-09-26] MEDS: LORazepam 0.5 MG TABLET PO PRN ×2 (15:03→20:45)
--- NOTE | 2017-09-26 17:28 | Progress Note ---
- Date 09/26/17 Subjective: F/U: Pneumonia Rough day. Want to go home. Sister from out of town in and has spent the entire day. They walked in [place]cha and went to the sun room. Patient get upset and yells out-wanting home. Did wear O2 this morning. While up and active today, not needing O2. Sats showing improvement. No cough. Eating well. Bowels moving. No temp elevations. Objective Vital signs: Temperature 97.5 F 09/26/17 07:45 Pulse Rate 64 09/26/17 07:45 Respiratory Rate 09/26/17 15:00 Blood Pressure 98/54 09/26/17 07:45 Pulse Oximetry 94 09/26/17 12:17 Height/Weight/BMI: Height 1.37 m Weight 65.5 kg Body Mass Index 31.9 - Constitutional Present: well nourished, well developed, average body habitus, obese, agitated - Routine HEENT Exam Head: Present: normocephalic, atraumatic Eye: Present: EOMI, PERRL ENT: Present: mucous membranes moist - Routine Respiratory Exam Present: decreased breath sounds. Absent: respiratory distress - Routine Cardiovascular Exam Present: RRR, no murmur - Routine Abdominal Exam Present: soft, normoactive bowel sounds, non distended, non tender - Routine Extremities Exam Present: edema (Trace BLE ). Absent: cyanosis, clubbing - Routine Musculoskeletal Exam Musculoskeletal: Present: no clubbing or cyanosis - Routine Skin Exam Present: dry, warm - Routine Neurological Exam Present: alert, vision grossly intact, hearing grossly intact Results - Labs CBC & Chem 7: 09/26/17 04:35 09/26/17 04:35 Microbiology Results: Microbiology 09/18/17 01:50 Sputum, Induced Gram Stain - Final 09/18/17 01:50 Sputum, Induced Sputum Culture - Final Normal Respiratory Corrie 09/18/17 01:52 Sputum, Expectorated Gram Stain - Final 09/18/17 01:52 Sputum, Expectorated Sputum Culture - Final Assessment and Plan (1) Aspiration pneumonia Current visit: Yes Status: Acute Assessment and Plan: Assessment Pneumonia - likely aspiration -improving Leukocytosis-(17.8) present on admission - resolved Hypernatremia-(147) present on admission - resolved Obesity hypoventilation syndrome Downs syndrome Dysphagia Hypothyroidism Atopic dermatitis [place] OCD/anxiety Allergic rhinitis Insomnia Obesity Urinary retention Vitamin D deficiency Plan Clinically improving. O2 needs decreasing. WBC remains normal and patient afebrile. Encourage continued activities and ambulation. Tried IS, but patient not interested in using. RT came up with other modalities to help patient breath deep and blow out. Will continue Meropenem and Lasix. Continue breathing treatments. Recheck lab and CXR tomorrow. Hope for discharge to [facility] soon. Case discussed with nursing and pt's family. Time spent with patient care 25 minutes. DVT Prophylaxis: SCD's Resuscitation Status: Full Code - Physician Narrative Physician: Chito Villarreal MD Narrative: Date: 09/26/17 Time: 1725 Hospital Course Summary Disclaimer: The visit summary below is not to be considered part of the above Progress Note. Hospital Course: 09/17/17-Hospital admission Admit, inpatient, under the hospitalist service, Dr. Mooney attending. Expect her stay to exceed 2 overnights given her dx of pneumonia and comorbidities which will require IV fluids, IV antibiotics, O2 and DuoNeb. Meropenem and vancomycin for coverage of aspiration pneumonia. It is noted that amoxicillin is listed as an allergy in the hospital patient chart, however, [facility] information lists no known drug allergies. Respiratory panel and sputum culture are pending. Rapid influenza testing in ER was negative. DuoNeb's, guaifenesin for respiratory symptoms. Start D5 half-normal saline for rehydration and hypernatremia. She received no fluids in the ER. Speech consult to evaluate swallowing function. Caregivers wish for her to be a full code at this time. Care to return to Dr. Tri Jose upon discharge. Case discussed with Dr. Mooney. Records reviewed from [facility]. 09/18/17 Meropenem and vancomycin for coverage of aspiration pneumonia. Sputum culture underway. (It is noted that amoxicillin is listed as an allergy in the hospital patient chart, however, [facility] information lists no known drug allergies.) Respiratory panel negative. DuoNeb's, guaifenesin for respiratory symptoms. D5 half-normal saline for rehydration and hypernatremia. Sodium is down to 146. Creatinine up from 1.1 to 1.3. Monitor. Speech consulted. Restarting her normal puree diet. Will try voiding schedule to try to help with urine retention and incontinence. Ativan changed to iv b/c pt not taking meds and agitated. Will return to oral Ativan daily. Resume home risperidone, temazepam, gabapentin. 09/19/17 Meropenem and vancomycin for coverage of aspiration pneumonia. Sputum culture - polymicrobial, poorly specific. Leukocytosis ongoing, but bandemia is improving. Continue nebs and O2. Respiratory panel negative. Repeat CXR in AM. DuoNeb's, guaifenesin for respiratory symptoms. Continue IVF, some improvement in hydration. Sodium normalized. Speech consulted. Restarting her normal puree diet. Will try voiding schedule to try to help with urine retention and incontinence. Continue bladder scan to assess urinary retention. Ativan changed to IV b/c pt not taking meds and agitated. Will return to oral Ativan daily. Resume home risperidone, temazepam, gabapentin. Eye droop- will add lacrilube BID and humidify O2 to help with dry eyes. Offered stroke w/u- family declined for now. Will continue to monitor. She remains a full code for now. 09/20/17 Patient improving. Will continue meropenem IV and DC vancomycin. Family confirmed patient had a rash with amoxicillin in the past. DC IVF's as patient is drinking/eating well 09/21/17 WBC improving. O2 needs decreasing, variable. Oral drive improved. Anticipate discharge in near future if continues to make gains. 09/22/[address] stable. Breathing comfortably, no respiratory distress. Still requiring O2. RT did evaluate-needing 3L with activities and 2L at rest. Suspect secondary to obesity hypoventilation syndrome. Will continue with supportive care and treatment. 09/23/17 Repeat CXR showing improvement. O2 needs are decreasing. Lasix 20mg IV x 1 given for pulmonary congestion. Continue ambulation efforts. 09/24/17 Xin continues to make slow gains. Breathing is stable on 2L NC. CXR on 09/23 appeared slightly improved. Case management continues to work on discharge planning back to [facility] [place]. Concern that [facility] is unable to get medication on the weekend which may delay discharge until next week. Continue supplemental oxygen, weaning as able. Crackles noted to bilateral bases on exam. Will given Lasix 20mg IV x 1 dose now and continue to monitor respiratory status. Continue respiratory care including DuoNeb treatments. Blood sugars remain stable. Will recheck labs in AM to monitor blood counts, electrolytes and renal function. Anticipate discharge in near future. 09/25/17 Xin continues to require supplemental oxygen. Oxygen demands at rest continues to be 1-2L and increase significantly with ambulation and exertion. Respiratory therapy noted that she has poor exercise endurance with oximetry decreasing to 84% on room air with exertion and required 6L to maintain >90% with exercise. Daily Lasix 20mg IV initiated to encourage fluid motivation and assist with respiratory function. Monitor renal function and urinary output closely. Continue Meropenem 1g Q12H for antimicrobial coverage of pulmonary pathogens - initiated 09/17/17; day 8. Continue supplemental oxygen, weaning as able. Continue respiratory care including DuoNeb treatments. 09/26/17 Clinically improving. O2 needs decreasing. WBC remains normal and patient afebrile. Encourage continued activities and ambulation. Tried IS, but patient not interested in using. RT came up with other modalities to help patient breath deep and blow out. Will continue Meropenem and Lasix. Continue breathing treatments. Recheck lab and CXR tomorrow. Hope for discharge to [facility] soon.
[2017-09-26] MEDS: TEMAZEPAM 15 MG CAPSULE PO SCH (20:13)
[2017-09-26] MEDS: RisperiDONE 0.5 MG TABLET PO SCH (20:13)
[2017-09-26] MEDS: GABAPENTIN 300 MG CAPSULE PO SCH (20:13)
[2017-09-26] MEDS: VICKS VAPORUB TP SCH (20:14)
[2017-09-26] MEDS ORDERED: FALL RISK - PHARMACY CONSULT XX ONE (22:50)
[2017-09-27 02:45] VITALS: TEMP 97.6
[2017-09-27] MEDS: LEVOTHYROXINE 75 MCG TABLET PO SCH (06:40)
[2017-09-27] MEDS: LORATADINE 10 MG TABLET PO SCH ×3 (07:42→09:28)
[2017-09-27] MEDS: LACRI-LUBE EYE OINT 3.5gm RIGHT EYE SCH ×2 (07:42→09:28)
[2017-09-27] MEDS: FLUTICASONE NASAL SPRAY 50mcg EA NOSTRIL SCH ×2 (07:43→09:00)
[2017-09-27] MEDS: ALBUTEROL/IPRATROPIUM 2.5mg-0.5mg/3ml NEB AEROSOL SCH ×2 (08:00→12:30)
--- NOTE | 2017-09-27 08:45 | XRay Report ---
EXAM: XR chest 2V 0828 hours COMPARISON: 09/23/2017. 09/20/2017. 07/08/2015. HISTORY: F/U . Pneumonia. FINDINGS: The heart is enlarged. The pulmonary vascular is indistinct. Increased interstitial markings are seen in the perihilar regions and mid and lower lungs. This is improved compared to the prior exam. There is no evidence for pleural effusion. There is no evidence for a pneumothorax. Mild AC joint arthrosis is noted. IMPRESSION: 1. Cardiomegaly. 2. Improvement in perihilar increased interstitial markings at the mid to lower lungs which may represent improving congestion or pneumonitis. Clinical correlation suggested. LOCATION OF DICTATION: [facility] – [place] .
[2017-09-27 08:46] VITALS: BP 105/65
[2017-09-27] MEDS: MONTELUKAST 10 MG TABLET PO SCH (09:29)
--- NOTE | 2017-09-27 10:12 | Progress Note ---
- Date 09/27/17 Subjective: F/U: Pneumonia Sitting up in chair. Breathing comfortably on room air-no respiratory distress. Cries out; wants to go home. Has been eating well. Not temp elevation. Lab stable. Objective Vital signs: Temperature 97.6 F 09/27/17 00:00 Pulse Rate 79 09/27/17 08:00 Respiratory Rate 20 09/27/17 08:00 Blood Pressure 105/65 09/27/17 08:00 Pulse Oximetry 93 09/27/17 08:00 Height/Weight/BMI: Height 1.37 m Weight 65.1 kg Body Mass Index 31.9 - Constitutional Present: well nourished, well developed, average body habitus, obese - Routine HEENT Exam Head: Present: normocephalic, atraumatic Eye: Present: EOMI, PERRL ENT: Present: mucous membranes moist - Routine Respiratory Exam Present: decreased breath sounds. Absent: respiratory distress - Routine Cardiovascular Exam Present: RRR, murmur - Routine Abdominal Exam Present: soft, normoactive bowel sounds, non distended, non tender - Routine Extremities Exam Present: edema (Trace BLE ), pulses intact. Absent: cyanosis, clubbing - Routine Musculoskeletal Exam Musculoskeletal: Present: no clubbing or cyanosis - Routine Skin Exam Present: dry, warm - Routine Neurological Exam Present: alert, moving all extremities, vision grossly intact, hearing grossly intact. Absent: CN II-XII intact, motor deficit, altered mental status Results - Labs CBC & Chem 7: 09/27/17 05:01 09/27/17 05:01 Microbiology Results: Microbiology 09/18/17 01:50 Sputum, Induced Gram Stain - Final 09/18/17 01:50 Sputum, Induced Sputum Culture - Final Normal Respiratory Corrie 09/18/17 01:52 Sputum, Expectorated Gram Stain - Final 09/18/17 01:52 Sputum, Expectorated Sputum Culture - Final Assessment and Plan (1) Aspiration pneumonia Current visit: Yes Status: Acute Assessment and Plan: Assessment Pneumonia - likely aspiration -improving Leukocytosis-(17.8) present on admission - resolved Hypernatremia-(147) present on admission - resolved Obesity hypoventilation syndrome Downs syndrome Dysphagia Hypothyroidism Atopic dermatitis [place] OCD/anxiety Allergic rhinitis Insomnia Obesity Urinary retention Vitamin D deficiency Plan WBC remains normal. No temp elevation. CXR showing improving. Oxygenation improving - saturations in mid to upper 90's on RA at rest. Reassessed patient's home O2 needs. With RT's evaluation, patient does not need oxygen at rest or with activities. Will discharge to [facility] for continuation of care. Clindamycin to continue in outpatient setting. Continue prior home medications. F/U with Dr Jose in 1 week. See orders for details. Time spent with patient care and discharge 30 minutes. DVT Prophylaxis: SCD's Resuscitation Status: Full Code - Physician Narrative Physician: Chito Villarreal MD Narrative: Date: 09/27/17 Time: 1006 Hospital Course Summary Disclaimer: The visit summary below is not to be considered part of the above Progress Note. Hospital Course: 09/17/17-Hospital admission Admit, inpatient, under the hospitalist service, Dr. Mooney attending. Expect her stay to exceed 2 overnights given her dx of pneumonia and comorbidities which will require IV fluids, IV antibiotics, O2 and DuoNeb. Meropenem and vancomycin for coverage of aspiration pneumonia. It is noted that amoxicillin is listed as an allergy in the hospital patient chart, however, [facility] information lists no known drug allergies. Respiratory panel and sputum culture are pending. Rapid influenza testing in ER was negative. DuoNeb's, guaifenesin for respiratory symptoms. Start D5 half-normal saline for rehydration and hypernatremia. She received no fluids in the ER. Speech consult to evaluate swallowing function. Caregivers wish for her to be a full code at this time. Care to return to Dr. Tri Jose upon discharge. Case discussed with Dr. Monoey. Records reviewed from [facility]. 09/18/17 Meropenem and vancomycin for coverage of aspiration pneumonia. Sputum culture underway. (It is noted that amoxicillin is listed as an allergy in the hospital patient chart, however, [facility] information lists no known drug allergies.) Respiratory panel negative. DuoNeb's, guaifenesin for respiratory symptoms. D5 half-normal saline for rehydration and hypernatremia. Sodium is down to 146. Creatinine up from 1.1 to 1.3. Monitor. Speech consulted. Restarting her normal puree diet. Will try voiding schedule to try to help with urine retention and incontinence. Ativan changed to iv b/c pt not taking meds and agitated. Will return to oral Ativan daily. Resume home risperidone, temazepam, gabapentin. 09/19/17 Meropenem and vancomycin for coverage of aspiration pneumonia. Sputum culture - polymicrobial, poorly specific. Leukocytosis ongoing, but bandemia is improving. Continue nebs and O2. Respiratory panel negative. Repeat CXR in AM. DuoNeb's, guaifenesin for respiratory symptoms. Continue IVF, some improvement in hydration. Sodium normalized. Speech consulted. Restarting her normal puree diet. Will try voiding schedule to try to help with urine retention and incontinence. Continue bladder scan to assess urinary retention. Ativan changed to IV b/c pt not taking meds and agitated. Will return to oral Ativan daily. Resume home risperidone, temazepam, gabapentin. Eye droop- will add lacrilube BID and humidify O2 to help with dry eyes. Offered stroke w/u- family declined for now. Will continue to monitor. She remains a full code for now. 09/20/17 Patient improving. Will continue meropenem IV and DC vancomycin. Family confirmed patient had a rash with amoxicillin in the past. DC IVF's as patient is drinking/eating well 09/21/17 WBC improving. O2 needs decreasing, variable. Oral drive improved. Anticipate discharge in near future if continues to make gains. 09/22/[address] stable. Breathing comfortably, no respiratory distress. Still requiring O2. RT did evaluate-needing 3L with activities and 2L at rest. Suspect secondary to obesity hypoventilation syndrome. Will continue with supportive care and treatment. 09/23/17 Repeat CXR showing improvement. O2 needs are decreasing. Lasix 20mg IV x 1 given for pulmonary congestion. Continue ambulation efforts. 09/24/17 Xin continues to make slow gains. Breathing is stable on 2L NC. CXR on 09/23 appeared slightly improved. Case management continues to work on discharge planning back to [facility]. Concern that [facility] is unable to get medication on the weekend which may delay discharge until next week. Continue supplemental oxygen, weaning as able. Crackles noted to bilateral bases on exam. Will given Lasix 20mg IV x 1 dose now and continue to monitor respiratory status. Continue respiratory care including DuoNeb treatments. Blood sugars remain stable. Will recheck labs in AM to monitor blood counts, electrolytes and renal function. Anticipate discharge in near future. 09/25/17 Xin continues to require supplemental oxygen. Oxygen demands at rest continues to be 1-2L and increase significantly with ambulation and exertion. Respiratory therapy noted that she has poor exercise endurance with oximetry decreasing to 84% on room air with exertion and required 6L to maintain >90% with exercise. Daily Lasix 20mg IV initiated to encourage fluid motivation and assist with respiratory function. Monitor renal function and urinary output closely. Continue Meropenem 1g Q12H for antimicrobial coverage of pulmonary pathogens - initiated 09/17/17; day 8. Continue supplemental oxygen, weaning as able. Continue respiratory care including DuoNeb treatments. 09/26/17 Clinically improving. O2 needs decreasing. WBC remains normal and patient afebrile. Encourage continued activities and ambulation. Tried IS, but patient not interested in using. RT came up with other modalities to help patient breath deep and blow out. Will continue Meropenem and Lasix. Continue breathing treatments. Recheck lab and CXR tomorrow. Hope for discharge to [facility] soon.
[2017-09-27] MEDS: MEROPENEM 1 GM in NS 50 ML IV SCH (12:16)
[2017-09-27] MEDS: FUROSEMIDE 20 MG/2 ML INJECTION IVP SCH (12:16)
[2017-09-27 12:30] VITALS: RESP 18
[2017-09-27 12:32] VITALS: PULSE 55; O2SAT 93
--- NOTE | 2017-09-27 13:24 | Discharge Summary ---
Discharge Information Date of admission: 09/17/17 15:39 Anticipated date of discharge: 09/27/17 Attending Physician: Chito Villarreal MD Primary care physician: Tri Jose MD Consults: PT/OT/Speech - Discharge Diagnosis (1) Aspiration pneumonia Status: Acute Discharge diagnosis Pneumonia - likely aspiration -improving Associated conditions and complications Leukocytosis-(17.8) present on admission - resolved Hypernatremia-(147) present on admission - resolved Obesity hypoventilation syndrome Downs syndrome Dysphagia Hypothyroidism Atopic dermatitis [place] OCD/anxiety Allergic rhinitis Insomnia Urinary retention Vitamin D deficiency Obesity with BMI 34.6 - Laboratory Labs: Admit Lab 09/17/17 14:33 WBC 17.8 H Hgb 15.0 Hct 45.0 MCV 98.9 Plt Count 222 Neutrophils % (Manual) 81.0 H Band Neutrophils % 5.0 Lymphocytes % (Manual) 11.0 L Monocytes % (Manual) 3.0 Admit Lab 09/17/17 14:33 Sodium 147 H Potassium 4.0 Chloride 108 H Carbon Dioxide 27 Anion Gap 12 BUN 21.0 H Creatinine 1.1 GFR Calculation 50 BUN/Creatinine Ratio 19 Glucose 109 Calculated Osmolality 286 H Calcium 9.2 Total Bilirubin 0.50 AST 29 ALT 41 Alkaline Phosphatase 115 Total Protein 7.3 Albumin 4.1 Globulin 3.2 Albumin/Globulin Ratio 1.3 09/27/17 05:01 09/27/17 05:01 - Microbiology Microbiology 09/18/17 01:50 Sputum, Induced Gram Stain - Final 09/18/17 01:50 Sputum, Induced Sputum Culture - Final Normal Respiratory Corrie 09/18/17 01:52 Sputum, Expectorated Gram Stain - Final 09/18/17 01:52 Sputum, Expectorated Sputum Culture - Final - Radiology Radiology: Date of Exam: 09/17/17 PROCEDURE: XR chest 1V Findings: Hazy infrahilar airspace opacity on the right. No pleural effusion or pneumothorax. Heart size and mediastinal contours are stable. Pulmonary vascularity appears normal. Impression: Right infrahilar infiltrate could be due to atelectasis, pneumonia or aspiration. ----- Date of Exam: 09/20/17 PROCEDURE: XR chest 1V Findings: The examination is moderately expiratory in nature with scattered patchy somewhat nodular interstitial parenchymal opacity. No definite lobar consolidation or pleural effusion. There is prominence of the cardiac silhouette which may be accentuated by the AP portable technique. Trachea is midline. No subdiaphragmatic free air. Impression: Moderate patchy predominantly interstitial nodular [place] opacity suggesting mild CHF. Follow-up to resolution is recommended. ----- Date of Exam: 09/23/17 PROCEDURE: CHEST 2-VIEWS UPRIGHT (PA & LAT) FINDINGS: Aeration of the lungs has improved with residual bilateral airspace consolidation. No pneumothorax or obvious pleural effusion. Heart size and mediastinal contours are stable. Pulmonary vascularity is indistinct. Impression: Improving edema or pneumonia. ----- Date of Exam: 09/27/17 Type of Exam: XR chest 2V FINDINGS: The heart is enlarged. The pulmonary vascular is indistinct. Increased interstitial markings are seen in the perihilar regions and mid and lower lungs. This is improved compared to the prior exam. There is no evidence for pleural effusion. There is no evidence for a pneumothorax. Mild AC joint arthrosis is noted. IMPRESSION: 1. Cardiomegaly. 2. Improvement in perihilar increased interstitial markings at the mid to lower lungs which may represent improving congestion or pneumonitis. Clinical correlation suggested. History of Present Illness HPI: The following information is gleaned from the ER chart as patient is unable to effectively communicate with me: Pt is a [facility] resident who presents with a cough for about 24 hours. Pt had a chest xray done yesterday which was clear per care provider but continues to cough up yellow sputum. She is refusing to eat. Unknown fever, some diarrhea. Patient has Down's syndrome and resides in a halfway. She had a twin sister ( also with Down's) who within the last year. Patient had chest x-ray in the ER showing a right infrahilar infiltrate which could be due to atelectasis versus pneumonia versus aspiration. White blood cell count was elevated at 17.8. Sodium elevated at 147. Given these findings and her disposition, hospitalist service was contacted to proceed with hospital admission. For complete details of the H&P refer to that document. Objective Vital signs: Temperature 97.6 F 09/27/17 00:00 Pulse Rate 55 L 09/27/17 12:31 Respiratory Rate 18 09/27/17 12:30 Blood Pressure 105/65 09/27/17 08:00 Pulse Oximetry 93 09/27/17 12:31 Height/Weight/BMI: Height 1.37 m Weight 65 kg Body Mass Index 31.9 Hospital Course This is a general summary of the patient's hospital course. For more details refer to the complete medical record. Hospital course: 09/17/17-Hospital admission Admit, inpatient, under the hospitalist service, Dr. Mooney attending. Expect her stay to exceed 2 overnights given her dx of pneumonia and comorbidities which will require IV fluids, IV antibiotics, O2 and DuoNeb. Meropenem and vancomycin for coverage of aspiration pneumonia. It is noted that amoxicillin is listed as an allergy in the hospital patient chart, however, [facility] information lists no known drug allergies. Respiratory panel and sputum culture are pending. Rapid influenza testing in ER was negative. DuoNeb's, guaifenesin for respiratory symptoms. Start D5 half-normal saline for rehydration and hypernatremia. She received no fluids in the ER. Speech consult to evaluate swallowing function. Caregivers wish for her to be a full code at this time. Care to return to Dr. Tri Jose upon discharge. Case discussed with Dr. Mooney. Records reviewed from [facility]. 09/18/17 Meropenem and vancomycin for coverage of aspiration pneumonia. Sputum culture underway. (It is noted that amoxicillin is listed as an allergy in the hospital patient chart, however, [facility] information lists no known drug allergies.) Respiratory panel negative. DuoNeb's, guaifenesin for respiratory symptoms. D5 half-normal saline for rehydration and hypernatremia. Sodium is down to 146. Creatinine up from 1.1 to 1.3. Monitor. Speech consulted. Restarting her normal puree diet. Will try voiding schedule to try to help with urine retention and incontinence. Ativan changed to iv b/c pt not taking meds and agitated. Will return to oral Ativan daily. Resume home risperidone, temazepam, gabapentin. 09/19/17 Meropenem and vancomycin for coverage of aspiration pneumonia. Sputum culture - polymicrobial, poorly specific. Leukocytosis ongoing, but bandemia is improving. Continue nebs and O2. Respiratory panel negative. Repeat CXR in AM. DuoNeb's, guaifenesin for respiratory symptoms. Continue IVF, some improvement in hydration. Sodium normalized. Speech consulted. Restarting her normal puree diet. Will try voiding schedule to try to help with urine retention and incontinence. Continue bladder scan to assess urinary retention. Ativan changed to IV b/c pt not taking meds and agitated. Will return to oral Ativan daily. Resume home risperidone, temazepam, gabapentin. Eye droop- will add lacrilube BID and humidify O2 to help with dry eyes. Offered stroke w/u- family declined for now. Will continue to monitor. She remains a full code for now. 09/20/17 Patient improving. Will continue meropenem IV and DC vancomycin. Family confirmed patient had a rash with amoxicillin in the past. DC IVF's as patient is drinking/eating well 09/21/17 WBC improving. O2 needs decreasing, variable. Oral drive improved. Anticipate discharge in near future if continues to make gains. 09/22/[address] stable. Breathing comfortably, no respiratory distress. Still requiring O2. RT did evaluate-needing 3L with activities and 2L at rest. Suspect secondary to obesity hypoventilation syndrome. Will continue with supportive care and treatment. 09/23/17 Repeat CXR showing improvement. O2 needs are decreasing. Lasix 20mg IV x 1 given for pulmonary congestion. Continue ambulation efforts. 09/24/17 Xin continues to make slow gains. Breathing is stable on 2L NC. CXR on 09/23 appeared slightly improved. Case management continues to work on discharge planning back to [facility]. Concern that [facility] is unable to get medication on the weekend which may delay discharge until next week. Continue supplemental oxygen, weaning as able. Crackles noted to bilateral bases on exam. Will given Lasix 20mg IV x 1 dose now and continue to monitor respiratory status. Continue respiratory care including DuoNeb treatments. Blood sugars remain stable. Will recheck labs in AM to monitor blood counts, electrolytes and renal function. Anticipate discharge in near future. 09/25/17 Xin continues to require supplemental oxygen. Oxygen demands at rest continues to be 1-2L and increase significantly with ambulation and exertion. Respiratory therapy noted that she has poor exercise endurance with oximetry decreasing to 84% on room air with exertion and required 6L to maintain >90% with exercise. Daily Lasix 20mg IV initiated to encourage fluid motivation and assist with respiratory function. Monitor renal function and urinary output closely. Continue Meropenem 1g Q12H for antimicrobial coverage of pulmonary pathogens - initiated 09/17/17; day 8. Continue supplemental oxygen, weaning as able. Continue respiratory care including DuoNeb treatments. 09/26/17 Clinically improving. O2 needs decreasing. WBC remains normal and patient afebrile. Encourage continued activities and ambulation. Tried IS, but patient not interested in using. RT came up with other modalities to help patient breath deep and blow out. Will continue Meropenem and Lasix. Continue breathing treatments. Recheck lab and CXR tomorrow. Hope for discharge to [facility] soon. 09/27/17 WBC remains normal. No temp elevation. CXR showing improving. Oxygenation improving - saturations in mid to upper 90's on RA at rest. Reassess home O2 needs - RT evaluation reveals no need for O2 therapy at rest or with ambulation. Will discharge to [facility] for continuation of care. Clindamycin to continue in outpatient setting. Continue prior home medications. F/U with Dr Jose in 1 week. See orders for details. Time spent with patient: discharge greater than 30 minutes Resuscitation Status: Full Code Discharge Plan - Discharge Disposition Discharge Date: 09/22/17 Disposition: 01 Discharged Home, Self-Care *Condition: Stable for Transport Reason For Visit (Visit label in EMR): pneumonia - Discharge Medications *Discharge Medications: New Clindamycin [Cleocin] 300 mg PO TID #21 cap Continue Montelukast Sodium [Singulair] 10 mg PO DAILY #0 Glucosamine 1,500 mg PO BID #0 Ketoconazole [Nizoral] 1 applicatio TOP HS #0 Cholecalciferol [Vit. D-3] 1,500 unit PO DAILY #0 Sennosides/Docusate Sodium [Senokot-S Tablet] 2 tab PO BID PRN PRN Reason: Constipation Magnesium Hydroxide [Milk of Magnesia] 30 ml PO DAILY PRN PRN Reason: Constipation Guaifenesin Oral Liq [Robitussin] 100 - 200 mg PO Q4-6HR PRN PRN Reason: Cough Clotrimazole 1% Cream [LOTRIMIN Cream] 1 applicatio TOP BID PRN PRN Reason: Prn Orders Calcium Carbonate [Calcium] 1,000 mg PO Q4H PRN PRN Reason: Heartburn Loratadine [Claritin] 10 mg PO DAILY Hydrocortisone 1% Cream [Cortizone-10 Cream] 1 applicatio TOP BID PRN PRN Reason: Rash Tolnaftate [Tinactin] 1 applicatio TP BID PRN PRN Reason: Prn Orders Nystatin 1 applicatio TOP BID Chlorhexidine Gluconate [Betasept] 1 applicatio TP DAILY Lactobacillus Acidophilus [Acidophilus] 1 cap PO DAILY Levothyroxine Sodium 75 mcg PO ACB Multivitamin [One Daily] 1 tab PO DAILY Mi Acid Suspension 20 ml PO Q4H PRN PRN Reason: Heartburn LORazepam [Ativan] 0.5 mg PO DAILY PRN PRN Reason: Anxiety Desonide Cream [Desowen] 1 applicatio TOP BID PRN PRN Reason: Prn Orders Zinc Oxide [Desitin] 1 applicatio TP PRN PRN PRN Reason: Prn Orders Acetaminophen [Acetaminophen Extra Strength] 1,000 mg PO Q4H PRN PRN Reason: Pain Albuterol HFA Inhaler [Ventolin Hfa 90 mcg/actuation] 2 puff INH QID risperiDONE [Risperidone] 0.5 mg PO HS Guaifenesin/Dextromethorphan [Robafen Dm Cgh-Chest Andrez Syrp] 10 ml PO Q4H PRN PRN Reason: Cough Fluticasone Nasal [place] [Flonase] 2 spray EA NOSTRIL DAILY #0 Gabapentin 300 mg PO HS #0 Glucosamine 500 mg PO WS #0 Nystatin Cream [Mycostatin] 1 applicatio TOP TID PRN #0 PRN Reason: Prn Orders Carbamide Peroxide Ear Drops [Debrox] 5 drop EACH EAR BID PRN #0 PRN Reason: PRN ORDERS Loperamide [Imodium] 2 mg PO QID PRN #0 PRN Reason: DIARRHEA Temazepam [Restoril] 15 mg PO HS Vicks Vaporub 1 applicatio TP HS Peg 3350 238 G Bottle [Miralax] 17 gm PO DAILY PRN PRN Reason: Constipation Mupirocin Ointment [Bactroban Ointmment] 1 applicatio TP BID PRN PRN Reason: Prn Orders - Discharge Packet/Instructions *Diet: No straws. Feeding assist. Liquids - syrup/nectar. Food - pureed. *Activity: As tolerated. May resume regular activity. *Pain Management/Treatment: n/a *Wound Care: n/a Additional Instructions: Recommend follow up CXR in 1-2 weeks with PCP per radiology recommendation on CXR performed 09/20/17 *Expected Signs/Symptoms: Gradual improvement in cough and strength. *Notify Physician if: She develops fever >100.4, has increasing cough or shortness of breath, or develops new symptoms. *During Business Hours Contact: Dr. Jose's office *After Business Hours Contact: [facility] at [phone] and ask for the doctor on-call to be paged. *Pending Lab/Results: No Pending Lab - Referrals/Follow Up *Referrals/Follow Up: Tri Jose MD [Family Provider] - 1 Week - Patient Handouts - Dismissal Complete Discharge Instructions are:: Complete Physician Narrative - Narrative Physician: Chito Villarreal MD Attestation Narrative: Date: 09/27/17 Time: 1321 Have independently interviewed and examined patient prior to discharge. See my progress note from today for details. Medically stable for discharge to home.
== END 2017-09-27 15:00 | disposition home or self-care (01) | DRG 178 ==
LOC: ED 12:57 → MED 15:39 → SUATTDRO 15:39 → MED 16:10
PROVIDERS: ADMIT Hospitalist; ATTEND Hospitalist